=== PATIENT | male | born 1970 | race Caucasian/White ===

== ENCOUNTER 2018-07-23 14:26 | Inpatient (IN) ==
[2018-07-23] MEDS ORDERED: 0.9 % Sodium Chloride 500 ML ONE (14:52)
[2018-07-23] MEDS ORDERED: 0.9 % Sodium Chloride 1,000 ML ONE (14:53)
[2018-07-23] MEDS ORDERED: EPINEPHrine 1 MG in D5% in Water 250 ML IVC SCH (15:00)
[2018-07-23] MEDS ORDERED: 0.9 % Sodium Chloride 1,000 ML IVC ONE (15:01)
[2018-07-23] MEDS ORDERED: Isovue-370 500 ML BOTTLE IVP ONE (15:01)
[2018-07-23] MEDS ORDERED: Ondansetron 4 MG/2 ML VIAL IVP ONE (15:01)
[2018-07-23] MEDS ORDERED: *HR* Atropine Sulfate 1 MG/10 ML SYRINGE IVP ONE (15:01)
[2018-07-23 15:16] LABS: Bilirubin,Urine Negative (Negative); Blood,Urine Large (Negative); Clarity,Urine Cloudy (Clear); Color,Urine Yellow (Yellow); Glucose,Urine (UA) Normal (Normal); Ketones,Urine Negative (Negative); Leukocyte Esterase,Urine Negative (Negative); Nitrite,Urine Negative (Negative); Protein,Urine 30 mg/dL (Neg-Trace); Specific Gravity,Urine 1.013 (1.010-1.025); Urobilinogen,Urine Normal (Normal)
[2018-07-23 15:19] LABS: Bacteria,Urine None Seen per hpf (None-Few); RBC,Urine 0-3 per hpf (0-3); Squamous Epithelial Cell,Urine Many per lpf (None-Few)
[2018-07-23 15:19] LABS: Basophils % 0.4 %; Eosinophils % 0.1 %; Hematocrit 33.8 % (37.5-50.1); Hemoglobin 11.3 g/dL (12.9-16.9); Immature Granulocytes % 0.6 % (0-4); Lymphocytes # 2.6 K/mcL (0.6-4.6); Lymphocytes % 24.1 %; Mean Corpuscular HGB Conc 33.4 g/dL (31.6-35.5); Mean Corpuscular Hemoglobin 31.7 pg (28.0-33.3); Mean Corpuscular Volume 94.7 fL (83.0-100.0); Monocytes % 9.6 %; Nucleated Red Blood Cells 0.3 /100 WBC (0); Platelet Count 175 K/mcL (140-400); Red Blood Count 3.57 M/mcL (4.19-5.50); Red Cell Distribution Width 17.1 % (11.5-14.5); Segmented Neutrophils % 65.2 %
[2018-07-23 15:28] LABS: Sperm,Urine Present
[2018-07-23 15:29] LABS: Hyaline Casts,Urine Few per lpf (None-Few)
[2018-07-23 15:30] LABS: BUN/Creatinine Ratio 16 (6-26); Bilirubin,Direct 0.2 mg/dL (0.0-0.2); Bilirubin,Total 1.2 mg/dL (0.3-1.0); Blood Urea Nitrogen 21 mg/dL (6-20); Calcium 8.7 mg/dL (8.6-10.3); Carbon Dioxide 29 mEq/L (23-29); Chloride 100 mEq/L (98-107); Glucose 344 mg/dL (70-105); Osmolality,Calculated 297 (280-300); Potassium 3.9 mEq/L (3.5-5.1); Sodium 135 mEq/L (136-145); eGFR For Non-African Americans 57 (> 60)
[2018-07-23 15:31] LABS: Acetaminophen < 10 mcg/mL (10-20); Alanine Aminotransferase 22 Units/L (7-52); Albumin 4.2 g/dL (3.5-5.7); Alkaline Phosphatase 71 Units/L (34-104); Aspartate Amino Transferase 20 Units/L (13-39); Creatine Kinase 21 Units/L (30-223); Ethanol < 10 mg/dL (Less than 10); Globulin 2.1 g/dL (2.4-3.5); Salicylate < 2.5 mg/dL (15.0-30.0); Total Protein 6.3 g/dL (6.4-8.9); Troponin I < 0.03 ng/mL (< 0.04)
[2018-07-23 15:33] LABS: ABG Base Excess -3 mEq/L (-2 to 3); ABG HCO3 24 mEq/L (21-27); ABG Oxygen Saturation 92 % (95-98); ABG PCO2 52 mmHg (35-45); ABG PH 7.28 pH Units (7.32-7.45); ABG PO2 73 mmHg (85-104); ABG TCO2 26 mEq/L (20-26)
--- NOTE | 2018-07-23 15:46 | Emergency Department Note ---
Disposition Clinical Impression: Cardiac arrest Overdose Qualifiers: Encounter type: initial encounter Injury intent: intentional self-harm Qualified Code(s): T50.902A - Poisoning by unspecified drugs, medicaments and biological substances, intentional self-harm, initial encounter Disposition: Admitted As Inpatient Condition: Critical Referrals: Ute Conway, PAPER CARRIER [Primary Care Provider] - Time of Disposition: 15:47 General Adult HPI - General Stated complaint: overdose Time Seen by Provider: 07/23/18 15:00 - Related Data Home Medications Medication Instructions Recorded Confirmed clonazePAM [Klonopin] 1 mg PO TID 03/11/15 06/19/18 HydrOXYzine Pamoate [Vistaril] 25 mg PO TID PRN 05/10/16 06/19/18 Buspirone HCl [Buspar] 1 tab PO TID 06/19/18 06/19/18 DiphenhydraMINE [Benadryl] 2 cap PO Q8H 06/19/18 06/19/18 Enalapril Maleate [Vasotec] 1 tab PO DAILY 06/19/18 06/19/18 Gabapentin [Neurontin] 1 cap PO BID 06/19/18 06/19/18 Levothyroxine Sodium [Levoxyl] 1 tab PO DAILY 06/19/18 06/19/18 Paroxetine [Paxil] 1 tab PO DAILY 06/19/18 06/19/18 Temazepam [Restoril] 1 cap PO HS PRN 06/19/18 06/19/18 predniSONE [PredniSONE] 1 tab PO DAILY 06/19/18 06/19/18 Allergies Allergy/AdvReac Type Severity Reaction Status Date / Time No Known Allergies Allergy Verified 03/10/15 17:19 Past Medical History - Past Medical History Medical history: Reports: hyperlipidemia, hypertension, thyroid disease, TIA, other Surgical history: Reports: cholecystectomy, other Psychiatric history: Reports: anxiety, depression - Social History Smoking Status: Never smoker Smokeless Tobacco Status: No Alcohol use: Reports: none Drug use: Reports: none Medical Decision Making - Lab Data Result diagrams: 07/23/18 14:29 07/23/18 14:29 Lab Results 07/23/18 07/23/18 07/23/18 Range/Units 14:29 14:29 14:29 WBC 10.7 (4.3-11.1) K/mcL RBC 3.57 L (4.19-5.50) M/mcL Hgb 11.3 L (12.9-16.9) g/dL Hct 33.8 L (37.5-50.1) % MCV 94.7 (83.0-100.0) fL MCH 31.7 (28.0-33.3) pg MCHC 33.4 (31.6-35.5) g/dL RDW 17.1 H (11.5-14.5) % Plt Count 175 (140-400) K/mcL MPV 11.0 (9.4-12.4) fL Immature Gran % 0.6 (0-4) % Seg Neutrophils % 65.2 % Lymphocytes % 24.1 % Monocytes % 9.6 % Eosinophils % 0.1 % Basophils % 0.4 % Neutrophils # 7.0 (1.6-8.9) K/mcL Lymphocytes # 2.6 (0.6-4.6) K/mcL Monocytes # 1.0 (0.0-1.3) K/mcL Eosinophils # 0.0 (0.0-0.6) K/mcL Basophils # 0.0 (0.0-0.2) K/mcL Nucleated RBCs/100 WBC 0.3 H (0) /100 WBC ABG pH (7.32-7.45) pH Units ABG pCO2 (35-45) mmHg ABG pO2 (85-104) mmHg ABG HCO3 (21-27) mEq/L ABG Total CO2 (20-26) mEq/L ABG O2 Saturation (95-98) % ABG Base Excess (-2 to 3) mEq/L O2 Delivery Device Inspired O2 (1-15=lpm [id number]=%) Sodium 135 L (136-145) mEq/L Potassium 3.9 (3.5-5.1) mEq/L Chloride 100 (98-107) mEq/L Carbon Dioxide 29 (23-29) mEq/L BUN 21 H (6-20) mg/dL Creatinine 1.34 H (0.70-1.30) mg/dL Est GFR ( Amer) > 60 (> 60) Est GFR (Non-Af Amer) 57 L (> 60) BUN/Creatinine Ratio 16 (6-26) Glucose 344 H (70-105) mg/dL Calculated Osmolality 297 (280-300) Lactic Acid 1.6 (0.5-2.2) mmol/L Calcium 8.7 (8.6-10.3) mg/dL Total Bilirubin 1.2 H (0.3-1.0) mg/dL Direct Bilirubin 0.2 (0.0-0.2) mg/dL Indirect Bilirubin 1.0 (0.0-1.2) mg/dL AST 20 (13-39) Units/L ALT 22 (7-52) Units/L Alkaline Phosphatase 71 (34-104) Units/L Creatine Kinase 21 L (30-223) Units/L Troponin I < 0.03 (< 0.04) ng/mL Serum Total Protein 6.3 L (6.4-8.9) g/dL Albumin 4.2 (3.5-5.7) g/dL Globulin 2.1 L (2.4-3.5) g/dL Albumin/Globulin Ratio 2.0 (1.1-2.2) Urine Color (Yellow) Urine Clarity (Clear) Urine pH (5.0-8.0) pH Units Ur Specific [place] (1.010-1.025) Urine Protein (Neg-Trace) mg/dL Urine Glucose (UA) (Normal) mg/dL Urine Ketones (Negative) mg/dL Urine Blood (Negative) Urine Nitrite (Negative) Urine Bilirubin (Negative) Urine Urobilinogen (Normal) mg/dL Ur Leukocyte Esterase (Negative) Urine Microscopic RBC (0-3) per hpf Urine Microscopic WBC (0-3) per hpf Ur Squamous Epith Cells (None-Few) per lpf Urine Bacteria (None-Few) per hpf Hyaline Casts (None-Few) per lpf Urine Sperm Salicylates < 2.5 L (15.0-30.0) mg/dL Acetaminophen < 10 L (10-20) mcg/mL Ur Drug Screen Interp Ethyl Alcohol < 10 (Less than 10) mg/dL 07/23/18 07/23/18 07/23/18 Range/Units 15:05 15:05 15:29 WBC (4.3-11.1) K/mcL RBC (4.19-5.50) M/mcL Hgb (12.9-16.9) g/dL Hct (37.5-50.1) % MCV (83.0-100.0) fL MCH (28.0-33.3) pg MCHC (31.6-35.5) g/dL RDW (11.5-14.5) % Plt Count (140-400) K/mcL MPV (9.4-12.4) fL Immature Gran % (0-4) % Seg Neutrophils % % Lymphocytes % % Monocytes % % Eosinophils % % Basophils % % Neutrophils # (1.6-8.9) K/mcL Lymphocytes # (0.6-4.6) K/mcL Monocytes # (0.0-1.3) K/mcL Eosinophils # (0.0-0.6) K/mcL Basophils # (0.0-0.2) K/mcL Nucleated RBCs/100 WBC (0) /100 WBC ABG pH 7.28 L (7.32-7.45) pH Units ABG pCO2 52 H (35-45) mmHg ABG pO2 73 L (85-104) mmHg ABG HCO3 24 (21-27) mEq/L ABG Total CO2 26 (20-26) mEq/L ABG O2 Saturation 92 L (95-98) % ABG Base Excess -3 L (-2 to 3) mEq/L O2 Delivery Device Bagging Inspired O2 100.0 (1-15=lpm [id number]=%) Sodium (136-145) mEq/L Potassium (3.5-5.1) mEq/L Chloride (98-107) mEq/L Carbon Dioxide (23-29) mEq/L BUN (6-20) mg/dL Creatinine (0.70-1.30) mg/dL Est GFR ( Amer) (> 60) Est GFR (Non-Af Amer) (> 60) BUN/Creatinine Ratio (6-26) Glucose (70-105) mg/dL Calculated Osmolality (280-300) Lactic Acid (0.5-2.2) mmol/L Calcium (8.6-10.3) mg/dL Total Bilirubin (0.3-1.0) mg/dL Direct Bilirubin (0.0-0.2) mg/dL Indirect Bilirubin (0.0-1.2) mg/dL AST (13-39) Units/L ALT (7-52) Units/L Alkaline Phosphatase (34-104) Units/L Creatine Kinase (30-223) Units/L Troponin I (< 0.04) ng/mL Serum Total Protein (6.4-8.9) g/dL Albumin (3.5-5.7) g/dL Globulin (2.4-3.5) g/dL Albumin/Globulin Ratio (1.1-2.2) Urine Color Yellow (Yellow) Urine Clarity Cloudy A (Clear) Urine pH 6.0 (5.0-8.0) pH Units Ur Specific [place] 1.013 (1.010-1.025) Urine Protein 30 H (Neg-Trace) mg/dL Urine Glucose (UA) Normal (Normal) mg/dL Urine Ketones Negative (Negative) mg/dL Urine Blood Large H (Negative) Urine Nitrite Negative (Negative) Urine Bilirubin Negative (Negative) Urine Urobilinogen Normal (Normal) mg/dL Ur Leukocyte Esterase Negative (Negative) Urine Microscopic RBC 0-3 (0-3) per hpf Urine Microscopic WBC 5-15 H (0-3) per hpf Ur Squamous Epith Cells Many H (None-Few) per lpf Urine Bacteria None Seen (None-Few) per hpf Hyaline Casts Few (None-Few) per lpf Urine Sperm Present Salicylates (15.0-30.0) mg/dL Acetaminophen (10-20) mcg/mL Ur Drug Screen Interp See Below Ethyl Alcohol (Less than 10) mg/dL Attestation Statement - Attestation Attestation: I examined this patient and my medical decision-making was reviewed with the Resident Physician. I agree with the documented findings, disposition and treatment plan as described except to the extent set forth below. I reviewed the residents documentation and agree with the residents assessment and plan of care. I have personally had face to face time with the patient. (Brief History, Brief Exam, and MDM) I personally supervised and was present for the velazquez/critical portions of the following procedures completed by the resident: (add procedures performed here). intubation, arterial line 48 year old male who presnts ot the ED unresponsive with snoring respirations and no gag reflex and a GCS of 6. Mariya has an intentional suicidal oversode today with his neew prescribed klonopoin of 90 pills and flexeril. Mariya was immeaidately intubated and was otherwsie a difficulty intubations seoncdayr to body habitus and anterior vocal cords with large neck. 1 attempt with DL, 3 attempts with VL. He was initially bradycardiac and after RSI became more bradycardiac and required atropine therapy for readjuments and he became increasingly more hypoxic and after tube placement was still in the upper 80s and there is concnerd for a great deal of aspiration on this patient and he started to vomit profusely after the atropoine was given. Atropine was not successful and he initially showed PEA, and we starte chest compressions continously and mutliple doses of epi and one dose of bicarb which then resulted with ROSC and we placed him on an epi drip in addition to continue monitoring of his hypoxia and readjument of the ET tube to be fruther down as it appears to be at the thoarcic inlet. Mariya is now on post sedation protocol orders and modesta be admit to the ICu. Discussed case with joie montenegro who recommended deconmination and NG tube is oterhwise in good placement.
[2018-07-23 15:48] LABS: Amphetamine Screen,Urine Negative ng/mL (Cutoff=1000); Barbiturate Screen,Urine Negative ng/mL (Cutoff=200); Benzodiazepines Screen,Urine Positive ng/mL (Cutoff=200); Cannabinoid Screen,Urine Negative ng/mL (Cutoff = 50); Cocaine Screen,Urine Negative ng/mL (Cutoff= 300); Opiate Screen,Urine Negative ng/mL (Cutoff=300); Phencyclidine Screen,Urine Negative ng/mL (Cutoff=25)
[2018-07-23] MEDS ORDERED: Clindamycin 900 MG/50 ML 900 MG/50 ML IV.SOLN IVPB ONE (16:39)
[2018-07-23] MEDS ORDERED: Naloxone 0.4 MG/ML INJ IVP PRN (17:03)
--- NOTE | 2018-07-23 17:48 | Internal Med History&Physical ---
Date of Encounter: 07/23/18 Time of Encounter: 17:00 Internal Medicine - H&P: HPI Chief complaint: medication overdose s/p cardiac arrest and respiratory failure History of present illness: Mr. Beltran is a 48 year old male with pmh hypertension, hyperlipidemia, thyroid disease, anxiety on klonazepam presenting s/p medication overdose today complicated by cardiac and respiratory failure. History obtained from ER and family as patient is intubated. Patient admitted to taking 90 tablets of klonazepam and some flexeril which he had reportedly recently filled. He called his to tell her what he had done and she found him lethargic and barely responsive and EMS was called. On arrival to the Er, he was reportedly already being bagged, he was immediately intubated and successfully intubated after 3 attempts. GCS was 5 on arrival and he had no gag reflex. He began to become bradycardic and was noted to be hypoxic. He got atropine but still went into PEA. He got about 4 rounds of CPR and 4 doses of epinephrine and one dose of bicarb after which he regained ROSC. He was subsequently started on an epinephine drip which was discontinued afer his BP went up into the 190s. Poison control was contacted and he got activated charcoal. He was also noted to have a lot of vomiting after his dose of atropine. He is currently saturating 100% on 100% FIO2 . BP is 152/87. ABG was done and showed 7.28, PCO2 52, PO2 73. He is on IV fluids and is being admitted for [facility] er management Past Med Surg Social Fam HX - Past Medical History Medical history: hyperlipidemia, hypertension, thyroid disease, TIA, other Additional medical history: Cervical stenosis of spinal canal. cervical radiculopathy. HLD. thyroid disease. depression Psychiatric history: anxiety, depression - Past Surgical History Surgical History: cholecystectomy, other Additional surgical history: femur fracture repair right. ACDF C6-7 05/10/16. RIGHT SHOULDER ROTATOR CUFF REPAIR - Social History Smoking Status: Never smoker Smokeless Tobacco Status: No Alcohol use: none Drug use: none - Family History Father Living Status: Hx Family Cardiac Disorders: Yes (CABG at age 70) Mother Living Status: Still Living Hx Family Cardiac Disorders: Yes (CABG at age 70) Hx Family Endocrine Disorder: Yes (DM) Internal Medicine - H&P: Meds clonazePAM [Klonopin] 1 mg PO TID 03/11/15 [History] HydrOXYzine Pamoate [Vistaril] 25 mg PO TID PRN 05/10/16 [History] Buspirone HCl [Buspar] 1 tab PO TID 06/19/18 [History] DiphenhydraMINE [Benadryl] 2 cap PO Q8H 06/19/18 [History] Enalapril Maleate [Vasotec] 1 tab PO DAILY 06/19/18 [History] Gabapentin [Neurontin] 1 cap PO BID 06/19/18 [History] Levothyroxine Sodium [Levoxyl] 1 tab PO DAILY 06/19/18 [History] Paroxetine [Paxil] 1 tab PO DAILY 06/19/18 [History] Temazepam [Restoril] 1 cap PO HS PRN 06/19/18 [History] predniSONE [PredniSONE] 1 tab PO DAILY 06/19/18 [History] Allergy/AdvReac Type Severity Reaction Status Date / Time No Known Allergies Allergy Verified 03/10/15 17:19 ROS unobtainable: due to endotracheal tube, due to mental status All Systems PM: A 10-system review of systems was performed and is negative for pertinent findings except as documented above in the HPI. - Constitutional Vitals: Pulse Resp BP Pulse Ox 71 16 152/87 99 07/23/18 16:46 07/23/18 16:46 07/23/18 16:46 07/23/18 16:46 Exam: Intubated GCS 3T - Head Head exam: Present: atraumatic, normocephalic - Eye Eye exam: Present: PERRL, conjuntiva pink, sclera anicteric Pupils: Present: PERRL - Neck Neck exam general surgery: Present: supple, trachea midline. Absent: lymphadenopathy - Respiratory Respiratory exam: Present: CTAB. Absent: accessory muscle use, rales, rhonchi, wheezes - Cardiovascular Cardiovascular exam: Present: RRR, +S1, +S2. Absent: diastolic murmur, gallop, rubs, systolic murmur - GI/Abdominal GI/Abdominal exam: Present: normal bowel sounds, soft, no peritoneal signs. Absent: distended, tenderness - Extremities Exam Extremities exam: Present: warm, radial pulses palpable and symmetrical. Absent: calf tenderness, cyanotic, pedal edema - Neurological Exam Neurological exam: Present: CN II-XII intact, oriented X3, no focal deficits. Absent: pronater drift, facial droop, speech deficit - Skin Skin exam: Present: dry, intact Internal Med - H&P Results - Labs CBC & Chem 7: 07/23/18 14:29 07/23/18 14:29 Labs: Short CBC 07/23/18 Range/Units 14:29 WBC 10.7 (4.3-11.1) K/mcL Hgb 11.3 L (12.9-16.9) g/dL Hct 33.8 L (37.5-50.1) % Plt Count 175 (140-400) K/mcL Neutrophils # 7.0 (1.6-8.9) K/mcL BMP 07/23/18 14:29 Sodium 135 L Potassium 3.9 Chloride 100 Carbon Dioxide 29 BUN 21 H Creatinine 1.34 H Glucose 344 H Calcium 8.7 Cardiac Enzymes 07/23/18 Range/Units 14:29 Troponin I < 0.03 (< 0.04) ng/mL Liver Function 07/23/18 Range/Units 14:29 Total Bilirubin 1.2 H (0.3-1.0) mg/dL Direct Bilirubin 0.2 (0.0-0.2) mg/dL AST 20 (13-39) Units/L ALT 22 (7-52) Units/L Alkaline Phosphatase 71 (34-104) Units/L Albumin 4.2 (3.5-5.7) g/dL Urine 07/23/18 Range/Units 15:05 Urine Color Yellow (Yellow) Urine Clarity Cloudy A (Clear) Urine pH 6.0 (5.0-8.0) pH Units Ur Specific [place] 1.013 (1.010-1.025) Urine Protein 30 H (Neg-Trace) mg/dL Urine Glucose (UA) Normal (Normal) mg/dL - ABG Interpretation ABG results: 07/23/18 15:29 ABG pH 7.28 L ABG pCO2 52 H ABG pO2 73 L ABG HCO3 24 ABG Total CO2 26 ABG O2 Saturation 92 L ABG Base Excess -3 L - Impressions ITS Impressions Chest X-Ray 07/23/18 00:00 IMPRESSION: Endotracheal tube tip remains mild positioned, at the C7-T1 level. That should be advanced approximately 6 additional cm for more optimal placement. D/ / Sp Medina MD / Sp Medina MD Interpreting Provider: Sp Medina MD Abdomen/Pelvis CT 07/23/18 15:01 IMPRESSION: 1. No acute intra-abdominal or pelvic abnormality. 2. Fluid-filled loops of small bowel may relate to ileus or gastroenteritis. 3. Bilateral lower lobe pneumonia. D/ / 07/23/2018 16:33:46 [facility] Provider: Mateo Sanon MD Cervical Spine CT 07/23/18 15:01 IMPRESSION: Head CT: No acute intracranial abnormality. Cervical spine CT: Limited by motion artifact and streak artifact. Given that limitation, no acute fracture or traumatic abnormalities seen. Again noted is a superiorly placed endotracheal tube, previously discussed on the chest radiograph. D/ / Sp Medina MD / Sp Medina MD Interpreting Provider: Sp Medina MD Chest CTA 07/23/18 15:01 IMPRESSION: 1. No evidence of acute pulmonary embolism. 2. Endotracheal tube is positioned at the thoracic inlet. 3. Dense bibasilar atelectasis. D/ / 07/23/2018 16:33:10 Alexander Rosas MD / [facility] Interpreting Provider: Alexander Rosas MD Chest X-Ray 07/23/18 15:01 IMPRESSION: The patient has been intubated. The tip of the endotracheal tube is around the C7-T1 level near the thoracic inlet. This should be advanced. Low lung volumes. D/ / 07/23/2018 15:51:31 Caity Sue MD / [facility] Interpreting Provider: Caity Sue MD KUB X-Ray 07/23/18 15:01 IMPRESSION: Proximal port and tip of the NG tube is in the fundus of the stomach. There is mild dilatation of the stomach and proximal small bowel. D/ / 07/23/2018 15:49:52 Caity Sue MD / [facility] Interpreting Provider: Caity Sue MD Head CT 07/23/18 15:02 IMPRESSION: Head CT: No acute intracranial abnormality. Cervical spine CT: Limited by motion artifact and streak artifact. Given that limitation, no acute fracture or traumatic abnormalities seen. Again noted is a superiorly placed endotracheal tube, previously discussed on the chest radiograph. D/ / Sp Medina MD / Sp Medina MD Interpreting Provider: Sp Medina MD Chest X-Ray 07/23/18 16:53 IMPRESSION: Tip of the enteric tube approximately 3.4 cm above the yesenia. D/ / Roger Bonilla MD / Roger Bonilla MD Interpreting Provider: Roger Bonilla MD - Assessment and Plan (1) Cardiac arrest Current Visit: Yes Status: Acute Assessment and plan: Pt comes in with hypoxic respiratory failure and PEA s/p ROSC after 4 rounds of epinephrine and 1 dose of bicarb Patient not a candidate for hypothermia protocol 2/2 to drug overdose and GCS <5 pre arrest Continue current management with ventilation and supportive care with IV fluids Obtain 2D echo. BP is currently stable without pressors (2) Acute respiratory failure with hypoxia Current Visit: Yes Status: Acute Assessment and plan: Likely secondary benzodiazepine overdose. Intubated. Saturating 100% on 100% FiO2. wean off oxygen as tolerated ABG in am. ABg showed mild respiratory acidosis with PH 7.28, PcO2 52, PO2 73 (3) Benzodiazepine (tranquilizer) overdose Current Visit: Yes Status: Acute Assessment and plan: See #1. Posion control contacted. Received activated charcoal in the ER Supportive management. Renal contacted and patient is not a candidate for dialysis Continue IV fluids Qualifiers: Qualified Code(s): T42.4X1A - Poisoning by benzodiazepines, accidental (unintentional), initial encounter (4) Aspiration pneumonia Current Visit: Yes Status: Acute Assessment and plan: Pt had a lot of vomiting in the ER and likely aspirated. CT chest showed bilateral pneumonia Will cover empirically with unasyn Qualifiers: Qualified Code(s): J69.0 - Pneumonitis due to inhalation of food and vomit (5) Acute kidney injury Current Visit: Yes Status: Acute Assessment and plan: IV fluids. Monitor creatinine (6) DVT prophylaxis Current Visit: Yes Status: Acute Assessment and plan: Heparin sc - Time Spent With Patient Total time spent is greater than 50% in coordination of care (as documented) at patient's floor/unit and/or counseling patient:
[2018-07-23] MEDS ORDERED: Ampicillin/Sulbactam 3,000 MG in 0.9 % Sodium Chloride Mini Bag 100 ML IVPB SCH (18:00)
--- NOTE | 2018-07-23 18:13 | Emergency Department Note ---
Disposition Clinical Impression: Cardiac arrest Overdose Qualifiers: Encounter type: initial encounter Injury intent: intentional self-harm Qualified Code(s): T50.902A - Poisoning by unspecified drugs, medicaments and biological substances, intentional self-harm, initial encounter Disposition: Admitted As Inpatient Condition: Critical Time of Disposition: 18:48 General Adult HPI - General Chief complaint: ED Overdose Stated complaint: overdose Time Seen by Provider: 07/23/18 15:00 Source: EMS Mode of arrival: EMS Nursing Notes Reviewed: Yes Vital Signs Reviewed: Yes - History of Present Illness HPI Narrative: 48-year-old male brought to the emergency department via EMS for intentional overdose. According to EMS patient took 90 tablets of his Klonopin and an unknown amount of Flexeril and an intentional overdose at home. He called his stating that he was sorry and she rushed over and found him unresponsive. EMS bagged patient along the Route. 4 mg of Narcan was given with no response. When patient arrived he is altered with a GCS of 3 upon arrival. No gag reflex. Decision was made to intubate the patient at that time. During intubation patient aspirated bright green emesis that was suctioned. Small pieces of pills were seen in the emesis. Patient bradycardia down and received 2 doses of atropine. Minimal response. Pulse was lost at this time. Multiple rounds of ACLS was completed with epinephrine given and one amp of bicarbonate. Patient had return of spontaneous circulation with good cardiac motion on ultrasound. At that time an epinephrine drip was started. This was run for less than 10 minutes. After return of spontaneous circulation patient remained unresponsive and intubated. Workup including laboratory analysis and CT of the head, cervical spine, chest, abdomen and pelvis was completed. Poison control was contacted and they recommended 100 g of activated charcoal, EKG and basic laboratory analysis that was already ordered. OG was placed in the 100 g of charcoal was given. Initial chest x-ray concerning for endotracheal tube being high therefore it was eventually advanced 4 cm. A repeat chest x-ray shows appropriate placement of endotracheal tube. OG placement appropriate on KUB x- ray. CT of the head and cervical spine did not show any acute abnormality. CT of the chest, abdomen and pelvis showed bilateral lower lobe pneumonia. This is most likely due to aspiration. Patient's laboratory analysis is significant for mild acute kidney injury along with positive benzodiazepines in the urine. Patient stabilized in the emergency department and will be admitted to the ICU for further treatment and evaluation. I spoke with the hospitalist communication studies professor Dr. Hernadez who agreed to accept the patient at this time. Please refer to further notes for procedures including arterial line. Pain Scale: 0 - Related Data Home Medications Medication Instructions Recorded Confirmed clonazePAM [Klonopin] 1 mg PO TID 03/11/15 06/19/18 HydrOXYzine Pamoate [Vistaril] 25 mg PO TID PRN 05/10/16 06/19/18 Buspirone HCl [Buspar] 1 tab PO TID 06/19/18 06/19/18 DiphenhydraMINE [Benadryl] 2 cap PO Q8H 06/19/18 06/19/18 Enalapril Maleate [Vasotec] 1 tab PO DAILY 06/19/18 06/19/18 Gabapentin [Neurontin] 1 cap PO BID 06/19/18 06/19/18 Levothyroxine Sodium [Levoxyl] 1 tab PO DAILY 06/19/18 06/19/18 Paroxetine [Paxil] 1 tab PO DAILY 06/19/18 06/19/18 Temazepam [Restoril] 1 cap PO HS PRN 06/19/18 06/19/18 predniSONE [PredniSONE] 1 tab PO DAILY 06/19/18 06/19/18 Allergies Allergy/AdvReac Type Severity Reaction Status Date / Time No Known Allergies Allergy Verified 03/10/15 17:19 Limitations: ROS unobtainable due to patients medical condition Past Medical History - Past Medical History Source: old records reviewed Medical history: Reports: hyperlipidemia, hypertension, thyroid disease, TIA, other Surgical history: Reports: cholecystectomy, other Psychiatric history: Reports: anxiety, depression - Social History Smoking Status: Unknown if ever smoked Smokeless Tobacco Status: No Alcohol use: Reports: none Drug use: Reports: none Physical Exam - General Limitations: altered mental status General appearance: other (GCS 3) - Eye Eye exam: Absent: scleral icterus - ENT ENT exam: mucous membranes moist - Chest Chest inspection: Present: symmetric chest wall rise - Respiratory Respiratory exam: Present: other (snoring) - Cardiovascular Cardiovascular exam: Present: regular rate, normal rhythm, normal heart sounds - Abdominal Exam Abdominal exam: Present: distention - Extremities Exam Extremities exam: Present: normal inspection - Skin Skin exam: Present: diaphoresis Course Vital Signs Temperature 98.4 F 07/23/18 14:30 Pulse Rate 65 07/23/18 14:30 Respiratory Rate 16 07/23/18 14:30 Blood Pressure 129/94 07/23/18 14:30 O2 Sat by Pulse Oximetry 99 07/23/18 14:30 Temperature 98.4 F 07/23/18 18:12 Pulse Rate 67 07/23/18 18:12 Respiratory Rate 16 07/23/18 18:12 Blood Pressure 125/69 07/23/18 18:12 O2 Sat by Pulse Oximetry 100 07/23/18 18:12 Oxygen Delivery Oxygen Delivery Ventilator Procedures - Intubation sedative: Etomidate Mg Given: 20 paralytic: Rocuronium Mg Given: 100 Laryngoscope: fiber optic video scope Assist Device Used: fiber optic device ET Tube Size: 7 ET Tube Uncuffed: No Tube Secured Location: teeth Tube Placement Confirmation: visualized tube passing through cords, equal breath sounds bilaterally, no breath sounds over epigastrium, confirmation by capnometry Intubation Complications: difficult intubation Medical Decision Making - Lab Data Result diagrams: 07/23/18 14:29 07/23/18 14:29 Lab Results 07/23/18 07/23/18 07/23/18 Range/Units 14:29 14:29 14:29 WBC 10.7 (4.3-11.1) K/mcL RBC 3.57 L (4.19-5.50) M/mcL Hgb 11.3 L (12.9-16.9) g/dL Hct 33.8 L (37.5-50.1) % MCV 94.7 (83.0-100.0) fL MCH 31.7 (28.0-33.3) pg MCHC 33.4 (31.6-35.5) g/dL RDW 17.1 H (11.5-14.5) % Plt Count 175 (140-400) K/mcL MPV 11.0 (9.4-12.4) fL Immature Gran % 0.6 (0-4) % Seg Neutrophils % 65.2 % Lymphocytes % 24.1 % Monocytes % 9.6 % Eosinophils % 0.1 % Basophils % 0.4 % Neutrophils # 7.0 (1.6-8.9) K/mcL Lymphocytes # 2.6 (0.6-4.6) K/mcL Monocytes # 1.0 (0.0-1.3) K/mcL Eosinophils # 0.0 (0.0-0.6) K/mcL Basophils # 0.0 (0.0-0.2) K/mcL Nucleated RBCs/100 WBC 0.3 H (0) /100 WBC ABG pH (7.32-7.45) pH Units ABG pCO2 (35-45) mmHg ABG pO2 (85-104) mmHg ABG HCO3 (21-27) mEq/L ABG Total CO2 (20-26) mEq/L ABG O2 Saturation (95-98) % ABG Base Excess (-2 to 3) mEq/L O2 Delivery Device Inspired O2 (1-15=lpm [id number]=%) Sodium 135 L (136-145) mEq/L Potassium 3.9 (3.5-5.1) mEq/L Chloride 100 (98-107) mEq/L Carbon Dioxide 29 (23-29) mEq/L BUN 21 H (6-20) mg/dL Creatinine 1.34 H (0.70-1.30) mg/dL Est GFR ( Amer) > 60 (> 60) Est GFR (Non-Af Amer) 57 L (> 60) BUN/Creatinine Ratio 16 (6-26) Glucose 344 H (70-105) mg/dL Calculated Osmolality 297 (280-300) Lactic Acid 1.6 (0.5-2.2) mmol/L Calcium 8.7 (8.6-10.3) mg/dL Total Bilirubin 1.2 H (0.3-1.0) mg/dL Direct Bilirubin 0.2 (0.0-0.2) mg/dL Indirect Bilirubin 1.0 (0.0-1.2) mg/dL AST 20 (13-39) Units/L ALT 22 (7-52) Units/L Alkaline Phosphatase 71 (34-104) Units/L Creatine Kinase 21 L (30-223) Units/L Troponin I < 0.03 (< 0.04) ng/mL Serum Total Protein 6.3 L (6.4-8.9) g/dL Albumin 4.2 (3.5-5.7) g/dL Globulin 2.1 L (2.4-3.5) g/dL Albumin/Globulin Ratio 2.0 (1.1-2.2) Urine Color (Yellow) Urine Clarity (Clear) Urine pH (5.0-8.0) pH Units Ur Specific [place] (1.010-1.025) Urine Protein (Neg-Trace) mg/dL Urine Glucose (UA) (Normal) mg/dL Urine Ketones (Negative) mg/dL Urine Blood (Negative) Urine Nitrite (Negative) Urine Bilirubin (Negative) Urine Urobilinogen (Normal) mg/dL Ur Leukocyte Esterase (Negative) Urine Microscopic RBC (0-3) per hpf Urine Microscopic WBC (0-3) per hpf Ur Squamous Epith Cells (None-Few) per lpf Urine Bacteria (None-Few) per hpf Hyaline Casts (None-Few) per lpf Urine Sperm Salicylates < 2.5 L (15.0-30.0) mg/dL Urine Opiates Screen (Nyqzqi=111) ng/mL Acetaminophen < 10 L (10-20) mcg/mL Ur Barbiturates Screen (Ruirwa=369) ng/mL Ur Phencyclidine Scrn (Cutoff=25) ng/mL Ur Amphetamines Screen (Ysqrfw=4658) ng/mL U Benzodiazepines Scrn (Nyqyze=466) ng/mL Urine Cocaine Screen (Cutoff= 300) ng/mL U Marijuana (THC) Screen (Cutoff = 50) ng/mL Ur Drug Screen Interp Ethyl Alcohol < 10 (Less than 10) mg/dL 07/23/18 07/23/18 07/23/18 Range/Units 15:05 15:05 15:29 WBC (4.3-11.1) K/mcL RBC (4.19-5.50) M/mcL Hgb (12.9-16.9) g/dL Hct (37.5-50.1) % MCV (83.0-100.0) fL MCH (28.0-33.3) pg MCHC (31.6-35.5) g/dL RDW (11.5-14.5) % Plt Count (140-400) K/mcL MPV (9.4-12.4) fL Immature Gran % (0-4) % Seg Neutrophils % % Lymphocytes % % Monocytes % % Eosinophils % % Basophils % % Neutrophils # (1.6-8.9) K/mcL Lymphocytes # (0.6-4.6) K/mcL Monocytes # (0.0-1.3) K/mcL Eosinophils # (0.0-0.6) K/mcL Basophils # (0.0-0.2) K/mcL Nucleated RBCs/100 WBC (0) /100 WBC ABG pH 7.28 L (7.32-7.45) pH Units ABG pCO2 52 H (35-45) mmHg ABG pO2 73 L (85-104) mmHg ABG HCO3 24 (21-27) mEq/L ABG Total CO2 26 (20-26) mEq/L ABG O2 Saturation 92 L (95-98) % ABG Base Excess -3 L (-2 to 3) mEq/L O2 Delivery Device Bagging Inspired O2 100.0 (1-15=lpm [id number]=%) Sodium (136-145) mEq/L Potassium (3.5-5.1) mEq/L Chloride (98-107) mEq/L Carbon Dioxide (23-29) mEq/L BUN (6-20) mg/dL Creatinine (0.70-1.30) mg/dL Est GFR ( Amer) (> 60) Est GFR (Non-Af Amer) (> 60) BUN/Creatinine Ratio (6-26) Glucose (70-105) mg/dL Calculated Osmolality (280-300) Lactic Acid (0.5-2.2) mmol/L Calcium (8.6-10.3) mg/dL Total Bilirubin (0.3-1.0) mg/dL Direct Bilirubin (0.0-0.2) mg/dL Indirect Bilirubin (0.0-1.2) mg/dL AST (13-39) Units/L ALT (7-52) Units/L Alkaline Phosphatase (34-104) Units/L Creatine Kinase (30-223) Units/L Troponin I (< 0.04) ng/mL Serum Total Protein (6.4-8.9) g/dL Albumin (3.5-5.7) g/dL Globulin (2.4-3.5) g/dL Albumin/Globulin Ratio (1.1-2.2) Urine Color Yellow (Yellow) Urine Clarity Cloudy A (Clear) Urine pH 6.0 (5.0-8.0) pH Units Ur Specific [place] 1.013 (1.010-1.025) Urine Protein 30 H (Neg-Trace) mg/dL Urine Glucose (UA) Normal (Normal) mg/dL Urine Ketones Negative (Negative) mg/dL Urine Blood Large H (Negative) Urine Nitrite Negative (Negative) Urine Bilirubin Negative (Negative) Urine Urobilinogen Normal (Normal) mg/dL Ur Leukocyte Esterase Negative (Negative) Urine Microscopic RBC 0-3 (0-3) per hpf Urine Microscopic WBC 5-15 H (0-3) per hpf Ur Squamous Epith Cells Many H (None-Few) per lpf Urine Bacteria None Seen (None-Few) per hpf Hyaline Casts Few (None-Few) per lpf Urine Sperm Present Salicylates (15.0-30.0) mg/dL Urine Opiates Screen Negative (Trmhet=545) ng/mL Acetaminophen (10-20) mcg/mL Ur Barbiturates Screen Negative (Pejbcd=935) ng/mL Ur Phencyclidine Scrn Negative (Cutoff=25) ng/mL Ur Amphetamines Screen Negative (Iniclm=4015) ng/mL U Benzodiazepines Scrn Positive H (Ibzwtg=421) ng/mL Urine Cocaine Screen Negative (Cutoff= 300) ng/mL U Marijuana (THC) Screen Negative (Cutoff = 50) ng/mL Ur Drug Screen Interp See Below Ethyl Alcohol (Less than 10) mg/dL
--- NOTE | 2018-07-23 18:13 | Emergency Department Note ---
Disposition Clinical Impression: Cardiac arrest Overdose Qualifiers: Encounter type: initial encounter Injury intent: intentional self-harm Qualified Code(s): T50.902A - Poisoning by unspecified drugs, medicaments and biological substances, intentional self-harm, initial encounter Disposition: Admitted As Inpatient Condition: Critical Time of Disposition: 18:13 General Adult HPI - General Chief complaint: ED Overdose Stated complaint: overdose Time Seen by Provider: 07/23/18 15:00 Source: EMS - History of Present Illness HPI Narrative: This is just a procedure note Pain Scale: 0 - Related Data Home Medications Medication Instructions Recorded Confirmed clonazePAM [Klonopin] 1 mg PO TID 03/11/15 06/19/18 HydrOXYzine Pamoate [Vistaril] 25 mg PO TID PRN 05/10/16 06/19/18 Buspirone HCl [Buspar] 1 tab PO TID 06/19/18 06/19/18 DiphenhydraMINE [Benadryl] 2 cap PO Q8H 06/19/18 06/19/18 Enalapril Maleate [Vasotec] 1 tab PO DAILY 06/19/18 06/19/18 Gabapentin [Neurontin] 1 cap PO BID 06/19/18 06/19/18 Levothyroxine Sodium [Levoxyl] 1 tab PO DAILY 06/19/18 06/19/18 Paroxetine [Paxil] 1 tab PO DAILY 06/19/18 06/19/18 Temazepam [Restoril] 1 cap PO HS PRN 06/19/18 06/19/18 predniSONE [PredniSONE] 1 tab PO DAILY 06/19/18 06/19/18 Allergies Allergy/AdvReac Type Severity Reaction Status Date / Time No Known Allergies Allergy Verified 03/10/15 17:19 Past Medical History - Past Medical History Medical history: Reports: hyperlipidemia, hypertension, thyroid disease, TIA, other Surgical history: Reports: cholecystectomy, other Psychiatric history: Reports: anxiety, depression - Social History Smoking Status: Unknown if ever smoked Smokeless Tobacco Status: No Alcohol use: Reports: none Drug use: Reports: none Course Vital Signs Temperature 98.4 F 07/23/18 14:30 Pulse Rate 65 07/23/18 14:30 Respiratory Rate 16 07/23/18 14:30 Blood Pressure 129/94 07/23/18 14:30 O2 Sat by Pulse Oximetry 99 07/23/18 14:30 Temperature 98.4 F 07/23/18 17:56 Pulse Rate 67 07/23/18 17:56 Respiratory Rate 16 07/23/18 17:56 Blood Pressure 125/69 07/23/18 17:56 O2 Sat by Pulse Oximetry 100 07/23/18 17:56 Oxygen Delivery Oxygen Delivery Ventilator Procedures - Arterial Line Consent Obtained: verbal consent Time Out Performed: Yes Size (Gauge): 18 Technique Used: direct puncture technique Post-Procedure: line sutured into place, line taped into place, dry sterile dr ginny placed Patient Tolerated Procedure: well, no complications Complications: none Site: right, radial Medical Decision Making - MDM Narrative Medical decision making narrative: This is just arterial line procedure note - Lab Data Result diagrams: 07/23/18 14:29 07/23/18 14:29 Lab Results 07/23/18 07/23/18 07/23/18 Range/Units 14:29 14:29 14:29 WBC 10.7 (4.3-11.1) K/mcL RBC 3.57 L (4.19-5.50) M/mcL Hgb 11.3 L (12.9-16.9) g/dL Hct 33.8 L (37.5-50.1) % MCV 94.7 (83.0-100.0) fL MCH 31.7 (28.0-33.3) pg MCHC 33.4 (31.6-35.5) g/dL RDW 17.1 H (11.5-14.5) % Plt Count 175 (140-400) K/mcL MPV 11.0 (9.4-12.4) fL Immature Gran % 0.6 (0-4) % Seg Neutrophils % 65.2 % Lymphocytes % 24.1 % Monocytes % 9.6 % Eosinophils % 0.1 % Basophils % 0.4 % Neutrophils # 7.0 (1.6-8.9) K/mcL Lymphocytes # 2.6 (0.6-4.6) K/mcL Monocytes # 1.0 (0.0-1.3) K/mcL Eosinophils # 0.0 (0.0-0.6) K/mcL Basophils # 0.0 (0.0-0.2) K/mcL Nucleated RBCs/100 WBC 0.3 H (0) /100 WBC ABG pH (7.32-7.45) pH Units ABG pCO2 (35-45) mmHg ABG pO2 (85-104) mmHg ABG HCO3 (21-27) mEq/L ABG Total CO2 (20-26) mEq/L ABG O2 Saturation (95-98) % ABG Base Excess (-2 to 3) mEq/L O2 Delivery Device Inspired O2 (1-15=lpm [id number]=%) Sodium 135 L (136-145) mEq/L Potassium 3.9 (3.5-5.1) mEq/L Chloride 100 (98-107) mEq/L Carbon Dioxide 29 (23-29) mEq/L BUN 21 H (6-20) mg/dL Creatinine 1.34 H (0.70-1.30) mg/dL Est GFR ( Amer) > 60 (> 60) Est GFR (Non-Af Amer) 57 L (> 60) BUN/Creatinine Ratio 16 (6-26) Glucose 344 H (70-105) mg/dL Calculated Osmolality 297 (280-300) Lactic Acid 1.6 (0.5-2.2) mmol/L Calcium 8.7 (8.6-10.3) mg/dL Total Bilirubin 1.2 H (0.3-1.0) mg/dL Direct Bilirubin 0.2 (0.0-0.2) mg/dL Indirect Bilirubin 1.0 (0.0-1.2) mg/dL AST 20 (13-39) Units/L ALT 22 (7-52) Units/L Alkaline Phosphatase 71 (34-104) Units/L Creatine Kinase 21 L (30-223) Units/L Troponin I < 0.03 (< 0.04) ng/mL Serum Total Protein 6.3 L (6.4-8.9) g/dL Albumin 4.2 (3.5-5.7) g/dL Globulin 2.1 L (2.4-3.5) g/dL Albumin/Globulin Ratio 2.0 (1.1-2.2) Urine Color (Yellow) Urine Clarity (Clear) Urine pH (5.0-8.0) pH Units Ur Specific [place] (1.010-1.025) Urine Protein (Neg-Trace) mg/dL Urine Glucose (UA) (Normal) mg/dL Urine Ketones (Negative) mg/dL Urine Blood (Negative) Urine Nitrite (Negative) Urine Bilirubin (Negative) Urine Urobilinogen (Normal) mg/dL Ur Leukocyte Esterase (Negative) Urine Microscopic RBC (0-3) per hpf Urine Microscopic WBC (0-3) per hpf Ur Squamous Epith Cells (None-Few) per lpf Urine Bacteria (None-Few) per hpf Hyaline Casts (None-Few) per lpf Urine Sperm Salicylates < 2.5 L (15.0-30.0) mg/dL Urine Opiates Screen (Ylbvwf=692) ng/mL Acetaminophen < 10 L (10-20) mcg/mL Ur Barbiturates Screen (Agminp=505) ng/mL Ur Phencyclidine Scrn (Cutoff=25) ng/mL Ur Amphetamines Screen (Bcairq=6830) ng/mL U Benzodiazepines Scrn (Naihcy=584) ng/mL Urine Cocaine Screen (Cutoff= 300) ng/mL U Marijuana (THC) Screen (Cutoff = 50) ng/mL Ur Drug Screen Interp Ethyl Alcohol < 10 (Less than 10) mg/dL 07/23/18 07/23/18 07/23/18 Range/Units 15:05 15:05 15:29 WBC (4.3-11.1) K/mcL RBC (4.19-5.50) M/mcL Hgb (12.9-16.9) g/dL Hct (37.5-50.1) % MCV (83.0-100.0) fL MCH (28.0-33.3) pg MCHC (31.6-35.5) g/dL RDW (11.5-14.5) % Plt Count (140-400) K/mcL MPV (9.4-12.4) fL Immature Gran % (0-4) % Seg Neutrophils % % Lymphocytes % % Monocytes % % Eosinophils % % Basophils % % Neutrophils # (1.6-8.9) K/mcL Lymphocytes # (0.6-4.6) K/mcL Monocytes # (0.0-1.3) K/mcL Eosinophils # (0.0-0.6) K/mcL Basophils # (0.0-0.2) K/mcL Nucleated RBCs/100 WBC (0) /100 WBC ABG pH 7.28 L (7.32-7.45) pH Units ABG pCO2 52 H (35-45) mmHg ABG pO2 73 L (85-104) mmHg ABG HCO3 24 (21-27) mEq/L ABG Total CO2 26 (20-26) mEq/L ABG O2 Saturation 92 L (95-98) % ABG Base Excess -3 L (-2 to 3) mEq/L O2 Delivery Device Bagging Inspired O2 100.0 (1-15=lpm [id number]=%) Sodium (136-145) mEq/L Potassium (3.5-5.1) mEq/L Chloride (98-107) mEq/L Carbon Dioxide (23-29) mEq/L BUN (6-20) mg/dL Creatinine (0.70-1.30) mg/dL Est GFR ( Amer) (> 60) Est GFR (Non-Af Amer) (> 60) BUN/Creatinine Ratio (6-26) Glucose (70-105) mg/dL Calculated Osmolality (280-300) Lactic Acid (0.5-2.2) mmol/L Calcium (8.6-10.3) mg/dL Total Bilirubin (0.3-1.0) mg/dL Direct Bilirubin (0.0-0.2) mg/dL Indirect Bilirubin (0.0-1.2) mg/dL AST (13-39) Units/L ALT (7-52) Units/L Alkaline Phosphatase (34-104) Units/L Creatine Kinase (30-223) Units/L Troponin I (< 0.04) ng/mL Serum Total Protein (6.4-8.9) g/dL Albumin (3.5-5.7) g/dL Globulin (2.4-3.5) g/dL Albumin/Globulin Ratio (1.1-2.2) Urine Color Yellow (Yellow) Urine Clarity Cloudy A (Clear) Urine pH 6.0 (5.0-8.0) pH Units Ur Specific [place] 1.013 (1.010-1.025) Urine Protein 30 H (Neg-Trace) mg/dL Urine Glucose (UA) Normal (Normal) mg/dL Urine Ketones Negative (Negative) mg/dL Urine Blood Large H (Negative) Urine Nitrite Negative (Negative) Urine Bilirubin Negative (Negative) Urine Urobilinogen Normal (Normal) mg/dL Ur Leukocyte Esterase Negative (Negative) Urine Microscopic RBC 0-3 (0-3) per hpf Urine Microscopic WBC 5-15 H (0-3) per hpf Ur Squamous Epith Cells Many H (None-Few) per lpf Urine Bacteria None Seen (None-Few) per hpf Hyaline Casts Few (None-Few) per lpf Urine Sperm Present Salicylates (15.0-30.0) mg/dL Urine Opiates Screen Negative (Rsxskf=421) ng/mL Acetaminophen (10-20) mcg/mL Ur Barbiturates Screen Negative (Hoydgv=533) ng/mL Ur Phencyclidine Scrn Negative (Cutoff=25) ng/mL Ur Amphetamines Screen Negative (Ynehru=8627) ng/mL U Benzodiazepines Scrn Positive H (Awfsbl=871) ng/mL Urine Cocaine Screen Negative (Cutoff= 300) ng/mL U Marijuana (THC) Screen Negative (Cutoff = 50) ng/mL Ur Drug Screen Interp See Below Ethyl Alcohol (Less than 10) mg/dL
[2018-07-23] MEDS: 0.9 % Sodium Chloride 1,000 ML IVC SCH ×2 (18:28→21:36)
--- NOTE | 2018-07-23 20:47 | Event Note ---
Date of Encounter: 07/24/18 Patient was seen and examined. Had lengthy discussion with patient's son and daughter and other family members in the room. All questions were answered and concerns addressed. Family asking if transfer to [facility] would be beneficial. I informed them that that we would be more than capable of managing his current medical condition here for the time being. Patient remains unresponsive and intubated after suicide attempt with ingestion of a large unknown quantity of benzodiazepines and muscle relaxers status post 8 minutes of ACLS with 4 rounds of epinephrine before return of spontaneous circulation. Vitals currently stable. We will continue fluids. Repeat EKG and blood work.
[2018-07-23 21:27] LABS: BUN/Creatinine Ratio 18 (6-26); Blood Urea Nitrogen 21 mg/dL (6-20); Calcium 7.5 mg/dL (8.6-10.3); Carbon Dioxide 22 mEq/L (23-29); Chloride 108 mEq/L (98-107); Glucose 140 mg/dL (70-105); Osmolality,Calculated 291 (280-300); Potassium 3.9 mEq/L (3.5-5.1); Sodium 138 mEq/L (136-145); eGFR For Non-African Americans > 60 (> 60)
[2018-07-23 22:01] LABS: Troponin I 0.12 ng/mL (< 0.04)
[2018-07-23] MEDS: Piperacillin/Tazobactam 3.375 GM in 0.9 % Sodium Chloride Mini Bag 100 ML IVPB SCH (22:43)
[2018-07-23 23:23] LABS: Alanine Aminotransferase 60 Units/L (7-52); Albumin 3.2 g/dL (3.5-5.7); Alkaline Phosphatase 56 Units/L (34-104); Aspartate Amino Transferase 42 Units/L (13-39); Bilirubin,Total 0.6 mg/dL (0.3-1.0); Globulin 1.6 g/dL (2.4-3.5); Total Protein 4.8 g/dL (6.4-8.9)
[2018-07-23] MEDS ORDERED: Norepinephrine 4 MG in D5% in Water 250 ML IVC SCH (23:30)
--- NOTE | 2018-07-23 23:32 | Procedure Note ---
Date of procedure: 07/23/18 Procedure: Procedure: Central Line Physician(s): Dr Heaven Chew Indication: Hypotension Anesthesia: 2% Lidocaine A time-out was completed, verifying correct patient, procedure, site, positioning, and implant(s) or special equipment if applicable. Patients right IJ area was prepped and draped in usual sterile fashion. 2% Lidocaine was used to anesthetize the area. A Triple lumen central line was introduced over a wire via the Seldinger technique, then sutured in place. Good blood flow was noted from all ports. The patient tolerated the procedure well. Chest x-ray was ordered to assess for pneumothorax and catheter placement. Complications: None Blood loss: Minimal Was there an assistant secretary present: No Estimated blood loss (cc): 5 Specimen: None Condition: critical Disposition: ICU
[2018-07-24] MEDS: *HR* LORazepam 2 MG/ML VIAL IVP PRN ×2 (01:49→02:59)
--- NOTE | 2018-07-24 02:43 | Event Note ---
Date of Encounter: 07/24/18 Time of Encounter: 02:42 I was contacted by the RN that this patient who was admitted during the day for cardiac arrest post exogenous drug intoxication had developed hypotension now refractory to fluid resuscitation. I proceeded to place an IJ CVC without complications to start vasopressor support. The patient later developed spontaneous bodily twitches which progressed. Will attempt a trial of short acting benzos with the concern that he may be developing myoclonic jerks or even seizures post cardiac arrest indicative of brain injury sustained from his admitting diagnosis. This is not a sign of positive outcomes and typically can be refractory to routine antiepileptic agents. He will benefit from neurologic clinical evaluation and imaging as well as an EEG. He is currently unstable and remains in a critical state with guarded prognosis. TATY BEAVER.
[2018-07-24] MEDS ORDERED: levETIRAcetam 1,000 MG in 0.9 % Sodium Chloride 100 ML IVPB ONE (02:53)
[2018-07-24] MEDS ORDERED: *HR* LORazepam 2 MG/ML VIAL ONE (02:54)
[2018-07-24] MEDS ORDERED: *HR* LORazepam 2 MG/ML VIAL IVP ONE (02:58)
[2018-07-24] MEDS ORDERED: Acetaminophen IV 1,000 MG/100 ML INFUS..BTL IVPB ONE (03:13)
[2018-07-24 04:47] LABS: ABG Base Excess -3 mEq/L (-2 to 3); ABG HCO3 21 mEq/L (21-27); ABG Oxygen Saturation 95 % (95-98); ABG PCO2 34 mmHg (35-45); ABG PH 7.41 pH Units (7.32-7.45); ABG PO2 75 mmHg (85-104); ABG TCO2 22 mEq/L (20-26); Blood Gas Modality ASSIST CONTROL; Blood Gas PEEP 5 cm H2O; Blood Gas Respiration Rate 16; Blood Gas VT 500 cc
[2018-07-24 05:05] LABS: Immature Granulocytes % 0.6 % (0-4); Red Cell Distribution Width 17.4 % (11.5-14.5)
[2018-07-24 05:07] LABS: Basophils % 0.2 %; Hematocrit 26.3 % (37.5-50.1); Hemoglobin 8.6 g/dL (12.9-16.9); Immature Platelets 4.9 % (1.1-6.1); Lymphocytes # 0.8 K/mcL (0.6-4.6); Lymphocytes % 15.5 %; Mean Corpuscular HGB Conc 32.7 g/dL (31.6-35.5); Mean Corpuscular Volume 94.9 fL (83.0-100.0); Mean Platelet Volume 10.2 fL (9.4-12.4); Monocytes # 0.6 K/mcL (0.0-1.3); Monocytes % 10.5 %; Neutrophils # 3.8 K/mcL (1.6-8.9); Nucleated Red Blood Cells 0.4 /100 WBC (0); Red Blood Count 2.77 M/mcL (4.19-5.50); Segmented Neutrophils % 73.2 %
[2018-07-24 05:16] LABS: INR 1.2; Prothrombin Time 13.3 Seconds (9.4-12.1)
[2018-07-24 05:19] LABS: Activated Partial Thrombo Time 26.5 Seconds (26.0-36.0)
[2018-07-24 05:23] LABS: BUN/Creatinine Ratio 16 (6-26); Blood Urea Nitrogen 19 mg/dL (6-20); Calcium 7.6 mg/dL (8.6-10.3); Carbon Dioxide 24 mEq/L (23-29); Chloride 106 mEq/L (98-107); Glucose 106 mg/dL (70-105); Magnesium 1.5 mg/dL (1.6-2.6); Osmolality,Calculated 293 (280-300); Phosphorous 2.1 mg/dL (2.7-4.5); Potassium 4.1 mEq/L (3.5-5.1); Sodium 140 mEq/L (136-145); eGFR For Non-African Americans > 60 (> 60)
[2018-07-24 05:29] LABS: Troponin I 0.07 ng/mL (< 0.04)
[2018-07-24 05:46] LABS: Platelet Count 99 K/mcL (140-400)
[2018-07-24] MEDS: 0.9 % Sodium Chloride 1,000 ML IVC SCH (05:46)
[2018-07-24] MEDS: Piperacillin/Tazobactam 3.375 GM in 0.9 % Sodium Chloride Mini Bag 100 ML IVPB SCH (05:47)
[2018-07-24] MEDS ORDERED: *HR* Heparin 5,000 UNIT/ML VIAL SQ SCH (06:00)
[2018-07-24 06:42] LABS: Anisocytosis 1+ (Not Present)
[2018-07-24 06:43] LABS: Platelet Estimate Decreased (Normal)
[2018-07-24] MEDS ORDERED: Phenytoin 1,000 MG in SYRINGE 1 EACH IVPB ONE (09:21)
[2018-07-24] MEDS ORDERED: Perflutren Lipid Microsphere 1.3 ML in 0.9 % Sodium Chloride 8.7 ML IVP ONE (09:30)
--- NOTE | 2018-07-24 09:44 | Discharge Summary ---
<Lukas Maldonadodoretha M - Last Filed: 07/24/18 14:28> Orders not resulted at time of discharge: Pending orders 07/23/18 15:02 ECG 12 lead ECG [ECG] Stat 07/23/18 20:42 EKG [ECG 12 lead ECG] [ECG] Stat 07/24/18 05:26 Culture,Blood [BC] Stat 07/24/18 07:26 LFTs [Hepatic Panel] Routine Date of Encounter: 07/24/18 - Discharge Medications Prescriptions: No Action RX: clonazePAM [Klonopin] 1 mg PO TID RX: HydrOXYzine Pamoate [Vistaril] 25 mg PO TID PRN PRN Reason: Anxiety RX: Gabapentin [Neurontin] 1 cap PO BID RX: Enalapril Maleate [Vasotec] 1 tab PO DAILY RX: Paroxetine [Paxil] 1 tab PO DAILY RX: Levothyroxine Sodium [Levoxyl] 1 tab PO DAILY RX: Temazepam [Restoril] 1 cap PO HS PRN PRN Reason: Sleep RX: predniSONE [PredniSONE] 1 tab PO DAILY RX: Buspirone HCl [Buspar] 1 tab PO TID RX: DiphenhydraMINE [Benadryl] 2 cap PO Q8H Home Medications: RX: clonazePAM [Klonopin] 1 mg PO TID 03/11/15 [History] RX: HydrOXYzine Pamoate [Vistaril] 25 mg PO TID PRN 05/10/16 [History] RX: Buspirone HCl [Buspar] 1 tab PO TID 06/19/18 [History] RX: DiphenhydraMINE [Benadryl] 2 cap PO Q8H 06/19/18 [History] RX: Enalapril Maleate [Vasotec] 1 tab PO DAILY 06/19/18 [History] RX: Gabapentin [Neurontin] 1 cap PO BID 06/19/18 [History] RX: Levothyroxine Sodium [Levoxyl] 1 tab PO DAILY 06/19/18 [History] RX: Paroxetine [Paxil] 1 tab PO DAILY 06/19/18 [History] RX: Temazepam [Restoril] 1 cap PO HS PRN 06/19/18 [History] RX: predniSONE [PredniSONE] 1 tab PO DAILY 06/19/18 [History] Allergies/Adverse Reactions: Allergy/AdvReac Type Severity Reaction Status Date / Time No Known Allergies Allergy Verified 03/10/15 17:19 Labs on day of discharge: Labs from last 24 hours 07/24/18 07/24/18 07/24/18 11:30 04:48 04:46 WBC RBC Hgb Hct MCV MCH MCHC RDW Plt Count MPV Immature Gran % Seg Neutrophils % Lymphocytes % Monocytes % Eosinophils % Basophils % Neutrophils # Lymphocytes # Monocytes # Eosinophils # Basophils # Nucleated RBCs/100 WBC Platelet Estimate Immature Plt Fraction Anisocytosis PT 13.3 H INR 1.2 APTT 26.5 Sample Site ABG pH ABG pCO2 ABG pO2 ABG HCO3 ABG Total CO2 ABG O2 Saturation ABG Base Excess Respiration Rate O2 Delivery Device Blood Gas Modality Inspired O2 Tidal Volume PEEP Sodium Potassium Chloride Carbon Dioxide BUN Creatinine Est GFR ( Amer) Est GFR (Non-Af Amer) BUN/Creatinine Ratio Glucose POC Glucose 98 Calculated Osmolality Lactic Acid 1.4 Calcium Phosphorus Magnesium Total Bilirubin Direct Bilirubin Indirect Bilirubin AST ALT Alkaline Phosphatase Creatine Kinase Troponin I Serum Total Protein Albumin Globulin Albumin/Globulin Ratio Urine Color Urine Clarity Urine pH Ur Specific [place] Urine Protein Urine Glucose (UA) Urine Ketones Urine Blood Urine Nitrite Urine Bilirubin Urine Urobilinogen Ur Leukocyte Esterase Urine Microscopic RBC Urine Microscopic WBC Ur Squamous Epith Cells Urine Bacteria Hyaline Casts Urine Sperm Salicylates Urine Opiates Screen Acetaminophen Ur Barbiturates Screen Ur Phencyclidine Scrn Ur Amphetamines Screen U Benzodiazepines Scrn Urine Cocaine Screen U Marijuana (THC) Screen Ur Drug Screen Interp Ethyl Alcohol 07/24/18 07/24/18 07/24/18 04:44 04:37 04:37 WBC 5.2 D RBC 2.77 L Hgb 8.6 L D Hct 26.3 L MCV 94.9 MCH 31.0 MCHC 32.7 RDW 17.4 H Plt Count 99 L MPV 10.2 Immature Gran % 0.6 Seg Neutrophils % 73.2 Lymphocytes % 15.5 Monocytes % 10.5 Eosinophils % 0.0 Basophils % 0.2 Neutrophils # 3.8 Lymphocytes # 0.8 Monocytes # 0.6 Eosinophils # 0.0 Basophils # 0.0 Nucleated RBCs/100 WBC 0.4 H Platelet Estimate Decreased L Immature Plt Fraction 4.9 Anisocytosis 1+ A PT INR APTT Sample Site Art Line ABG pH 7.41 ABG pCO2 34 L ABG pO2 75 L ABG HCO3 21 ABG Total CO2 22 ABG O2 Saturation 95 ABG Base Excess -3 L Respiration Rate 16 O2 Delivery Device Adult Vent Blood Gas Modality ASSIST CONTROL Inspired O2 40.0 Tidal Volume 500 PEEP 5 Sodium 140 Potassium 4.1 Chloride 106 Carbon Dioxide 24 BUN 19 Creatinine 1.21 Est GFR ( Amer) > 60 Est GFR (Non-Af Amer) > 60 BUN/Creatinine Ratio 16 Glucose 106 H POC Glucose Calculated Osmolality 293 Lactic Acid Calcium 7.6 L Phosphorus 2.1 L Magnesium 1.5 L Total Bilirubin Direct Bilirubin Indirect Bilirubin AST ALT Alkaline Phosphatase Creatine Kinase Troponin I 0.07 H* Serum Total Protein Albumin Globulin Albumin/Globulin Ratio Urine Color Urine Clarity Urine pH Ur Specific [place] Urine Protein Urine Glucose (UA) Urine Ketones Urine Blood Urine Nitrite Urine Bilirubin Urine Urobilinogen Ur Leukocyte Esterase Urine Microscopic RBC Urine Microscopic WBC Ur Squamous Epith Cells Urine Bacteria Hyaline Casts Urine Sperm Salicylates Urine Opiates Screen Acetaminophen Ur Barbiturates Screen Ur Phencyclidine Scrn Ur Amphetamines Screen U Benzodiazepines Scrn Urine Cocaine Screen U Marijuana (THC) Screen Ur Drug Screen Interp Ethyl Alcohol 07/23/18 07/23/18 07/23/18 23:39 20:47 18:52 WBC RBC Hgb Hct MCV MCH MCHC RDW Plt Count MPV Immature Gran % Seg Neutrophils % Lymphocytes % Monocytes % Eosinophils % Basophils % Neutrophils # Lymphocytes # Monocytes # Eosinophils # Basophils # Nucleated RBCs/100 WBC Platelet Estimate Immature Plt Fraction Anisocytosis PT INR APTT Sample Site ABG pH ABG pCO2 ABG pO2 ABG HCO3 ABG Total CO2 ABG O2 Saturation ABG Base Excess Respiration Rate O2 Delivery Device Blood Gas Modality Inspired O2 Tidal Volume PEEP Sodium 138 Potassium 3.9 Chloride 108 H Carbon Dioxide 22 L BUN 21 H Creatinine 1.17 Est GFR ( Amer) > 60 Est GFR (Non-Af Amer) > 60 BUN/Creatinine Ratio 18 Glucose 140 H POC Glucose 98 260 H Calculated Osmolality 291 Lactic Acid Calcium 7.5 L Phosphorus Magnesium Total Bilirubin 0.6 Direct Bilirubin Indirect Bilirubin AST 42 H ALT 60 H Alkaline Phosphatase 56 Creatine Kinase Troponin I 0.12 H* Serum Total Protein 4.8 L Albumin 3.2 L Globulin 1.6 L Albumin/Globulin Ratio 2.0 Urine Color Urine Clarity Urine pH Ur Specific [place] Urine Protein Urine Glucose (UA) Urine Ketones Urine Blood Urine Nitrite Urine Bilirubin Urine Urobilinogen Ur Leukocyte Esterase Urine Microscopic RBC Urine Microscopic WBC Ur Squamous Epith Cells Urine Bacteria Hyaline Casts Urine Sperm Salicylates Urine Opiates Screen Acetaminophen Ur Barbiturates Screen Ur Phencyclidine Scrn Ur Amphetamines Screen U Benzodiazepines Scrn Urine Cocaine Screen U Marijuana (THC) Screen Ur Drug Screen Interp Ethyl Alcohol 07/23/18 07/23/18 07/23/18 15:29 15:05 15:05 WBC RBC Hgb Hct MCV MCH MCHC RDW Plt Count MPV Immature Gran % Seg Neutrophils % Lymphocytes % Monocytes % Eosinophils % Basophils % Neutrophils # Lymphocytes # Monocytes # Eosinophils # Basophils # Nucleated RBCs/100 WBC Platelet Estimate Immature Plt Fraction Anisocytosis PT INR APTT Sample Site ABG pH 7.28 L ABG pCO2 52 H ABG pO2 73 L ABG HCO3 24 ABG Total CO2 26 ABG O2 Saturation 92 L ABG Base Excess -3 L Respiration Rate O2 Delivery Device Bagging Blood Gas Modality Inspired O2 100.0 Tidal Volume PEEP Sodium Potassium Chloride Carbon Dioxide BUN Creatinine Est GFR ( Amer) Est GFR (Non-Af Amer) BUN/Creatinine Ratio Glucose POC Glucose Calculated Osmolality Lactic Acid Calcium Phosphorus Magnesium Total Bilirubin Direct Bilirubin Indirect Bilirubin AST ALT Alkaline Phosphatase Creatine Kinase Troponin I Serum Total Protein Albumin Globulin Albumin/Globulin Ratio Urine Color Yellow Urine Clarity Cloudy A Urine pH 6.0 Ur Specific [place] 1.013 Urine Protein 30 H Urine Glucose (UA) Normal Urine Ketones Negative Urine Blood Large H Urine Nitrite Negative Urine Bilirubin Negative Urine Urobilinogen Normal Ur Leukocyte Esterase Negative Urine Microscopic RBC 0-3 Urine Microscopic WBC 5-15 H Ur Squamous Epith Cells Many H Urine Bacteria None Seen Hyaline Casts Few Urine Sperm Present Salicylates Urine Opiates Screen Negative Acetaminophen Ur Barbiturates Screen Negative Ur Phencyclidine Scrn Negative Ur Amphetamines Screen Negative U Benzodiazepines Scrn Positive H Urine Cocaine Screen Negative U Marijuana (THC) Screen Negative Ur Drug Screen Interp See Below Ethyl Alcohol 07/23/18 07/23/18 07/23/18 14:29 14:29 14:29 WBC 10.7 RBC 3.57 L Hgb 11.3 L Hct 33.8 L MCV 94.7 MCH 31.7 MCHC 33.4 RDW 17.1 H Plt Count 175 MPV 11.0 Immature Gran % 0.6 Seg Neutrophils % 65.2 Lymphocytes % 24.1 Monocytes % 9.6 Eosinophils % 0.1 Basophils % 0.4 Neutrophils # 7.0 Lymphocytes # 2.6 Monocytes # 1.0 Eosinophils # 0.0 Basophils # 0.0 Nucleated RBCs/100 WBC 0.3 H Platelet Estimate Immature Plt Fraction Anisocytosis PT INR APTT Sample Site ABG pH ABG pCO2 ABG pO2 ABG HCO3 ABG Total CO2 ABG O2 Saturation ABG Base Excess Respiration Rate O2 Delivery Device Blood Gas Modality Inspired O2 Tidal Volume PEEP Sodium 135 L Potassium 3.9 Chloride 100 Carbon Dioxide 29 BUN 21 H Creatinine 1.34 H Est GFR ( Amer) > 60 Est GFR (Non-Af Amer) 57 L BUN/Creatinine Ratio 16 Glucose 344 H POC Glucose Calculated Osmolality 297 Lactic Acid 1.6 Calcium 8.7 Phosphorus Magnesium Total Bilirubin 1.2 H Direct Bilirubin 0.2 Indirect Bilirubin 1.0 AST 20 ALT 22 Alkaline Phosphatase 71 Creatine Kinase 21 L Troponin I < 0.03 Serum Total Protein 6.3 L Albumin 4.2 Globulin 2.1 L Albumin/Globulin Ratio 2.0 Urine Color Urine Clarity Urine pH Ur Specific [place] Urine Protein Urine Glucose (UA) Urine Ketones Urine Blood Urine Nitrite Urine Bilirubin Urine Urobilinogen Ur Leukocyte Esterase Urine Microscopic RBC Urine Microscopic WBC Ur Squamous Epith Cells Urine Bacteria Hyaline Casts Urine Sperm Salicylates < 2.5 L Urine Opiates Screen Acetaminophen < 10 L Ur Barbiturates Screen Ur Phencyclidine Scrn Ur Amphetamines Screen U Benzodiazepines Scrn Urine Cocaine Screen U Marijuana (THC) Screen Ur Drug Screen Interp Ethyl Alcohol < 10 Preliminary micro results at discharge 07/24/18 05:26 Blood Culture - Preliminary Peripheral Venipuncture Culture is incubating and being continuously monitored for growth. Final report to follow. - Impressions ITS Impressions Chest X-Ray 07/23/18 00:00 IMPRESSION: Endotracheal tube tip remains mild positioned, at the C7-T1 level. That should be advanced approximately 6 additional cm for more optimal placement. D/ / Sp Medina MD / Sp Medina MD Interpreting Provider: Sp Medina MD Abdomen/Pelvis CT 07/23/18 15:01 IMPRESSION: 1. No acute intra-abdominal or pelvic abnormality. 2. Fluid-filled loops of small bowel may relate to ileus or gastroenteritis. 3. Bilateral lower lobe pneumonia. D/ / 07/23/2018 16:33:46 Mateo Sanon MD / [facility] Interpreting Provider: Mateo Sanon MD Cervical Spine CT 07/23/18 15:01 IMPRESSION: Head CT: No acute intracranial abnormality. Cervical spine CT: Limited by motion artifact and streak artifact. Given that limitation, no acute fracture or traumatic abnormalities seen. Again noted is a superiorly placed endotracheal tube, previously discussed on the chest radiograph. D/ / Sp Medina MD / Sp Medina MD Interpreting Provider: Sp Medina MD Chest CTA 07/23/18 15:01 IMPRESSION: 1. No evidence of acute pulmonary embolism. 2. Endotracheal tube is positioned at the thoracic inlet. 3. Dense bibasilar atelectasis. D/ / 07/23/2018 16:33:10 Alexander Rosas MD / [facility] Interpreting Provider: lAexander Rosas MD Chest X-Ray 07/23/18 15:01 IMPRESSION: The patient has been intubated. The tip of the endotracheal tube is around the C7-T1 level near the thoracic inlet. This should be advanced. Low lung volumes. D/ / 07/23/2018 15:51:31 Caity Sue MD / [facility] Interpreting Provider: Caity Sue MD KUB X-Ray 07/23/18 15:01 IMPRESSION: Proximal port and tip of the NG tube is in the fundus of the stomach. There is mild dilatation of the stomach and proximal small bowel. D/ / 07/23/2018 15:49:52 Caity Sue MD / [facility] Interpreting Provider: Caity Sue MD Head CT 07/23/18 15:02 IMPRESSION: Head CT: No acute intracranial abnormality. Cervical spine CT: Limited by motion artifact and streak artifact. Given that limitation, no acute fracture or traumatic abnormalities seen. Again noted is a superiorly placed endotracheal tube, previously discussed on the chest radiograph. D/ / Sp Medina MD / Sp Medina MD Interpreting Provider: Sp Medina MD Chest X-Ray 07/23/18 16:53 IMPRESSION: Tip of the enteric tube approximately 3.4 cm above the [place]enia. D/ / Roger Bonilla MD / Roger Bonilla MD Interpreting Provider: Roger Bonilla MD Chest X-Ray 07/23/18 19:22 IMPRESSION: Multifocal airspace disease bilaterally. Some of this is improved and there is segmental increase in the right lung base along the diaphragm. Continued follow-up recommended ET tube tip projects at the top of the aortic arch. D/ / Michael Bloom / Michael Bloom Interpreting Provider: Michael Bloom Chest X-Ray 07/23/18 20:32 IMPRESSION: Tip of the endotracheal tube projects approximately 4.5 cm above the yesenia. D/ / Sp Medina MD / Sp Medina MD Interpreting Provider: Sp Medina MD Chest X-Ray 07/23/18 22:15 IMPRESSION: Status post placement of right internal jugular central venous catheter, without gross pneumothorax. Persistent bilateral airspace disease, slightly increased on the left as compared to prior. D/ / Marcio Martinez MD / Marcio Martinez MD Interpreting Provider: Marcio Martinez MD Echocardiogram 07/24/18 17:49 Impressions: LVEF 60%. Moderate concentric left ventricular hypertrophy. Normal left ventricular diastolic function. Right ventricle was not well visualized. Grossly appears normal in size and function. No obvious significant valvular dysfunction No evidence of pulmonary hypertension based on TR jet. Left Ventricular Wall Motion: Rest Echo Findings All wall segments showed normal motion. Findings: Study Quality * Technically adequate exam. ECG Findings * Normal sinus rhythm. Left Ventricle * LVEF 60%. * Moderate concentric left ventricular hypertrophy. * Normal LV chamber size and systolic function. * Normal left ventricular diastolic function. * Definity echo contrast was used. Right Ventricle * Normal right ventricular structure and function. Left Atrium * Normal left atrial size. Right Atrium * Normal right atrial size. Aortic Valve * Trileaflet aortic valve. * Mildly sclerotic aortic valve leaflets. * No aortic regurgitation. * No aortic stenosis. Mitral Valve * Normal mitral valve structure. * No mitral regurgitation. * No mitral stenosis. Tricuspid Valve * Normal tricuspid valve structure. * Trace tricuspid regurgitation. * No tricuspid stenosis. * No evidence of pulmonary hypertension. Pulmonic Valve * Pulmonic valve not well visualized. Aorta * Normally sized aortic root. Pericardium * The pericardium appears normal. IVC * The IVC is dilated but cannot be used to estimate RA pressure as patient is on ventillator. Date of admission: 07/23/18 17:11 Primary care physician: Ute Conway CNP Consults: 07/23/18 17:08 Consult to Pulmonology [CONS] Routine Consulting Provider: [facility] Reason for Consult: respiratory failure s/p clonipin and flexeril overdose Call Completed: No 07/23/18 17:15 Consult to Nephrology [CONS] Routine Consulting Provider: Kidney Radha/ORIDEEPALI/DARIEN/NATASHA Reason for Consult: medication overdose Call Completed: Yes 07/24/18 04:31 Consult to Neurology [CONS] Routine Consulting Provider: [facility] Reason for Consult: Assess for hypoxic brain injury after overdose and cardiac arrest now developing seizure-like activity. Call Completed: Yes - Patient Status Disposition: Transfer Short-Term Hosp Condition: Critical - Discharge Instructions Follow Up With: Ute Conway CNP [Primary Care Provider] - Forms: ED Satisfaction Letter - Hospital Course Hospital course: Mr. Beltran is a 48 year old male - Time Spent with Patient Total time spent providing and/or coordinating discharge services: Physical Examination Vital Signs: Vital Signs, Last 4 Hours Pulse Resp BP Pulse Ox 07/24/18 11:16 16 100 07/24/18 11:00 88 16 171/65 100 - Attending Attestation This is pulmonary critical care consultation as well as discharge summary. I examined this patient and my medical decision-making was reviewed with the Resident Physician. I agree with the documented findings, disposition and treatment plan as described except to the extent set forth below. Patient seen and examined. Labs, radiology, chart personally reviewed. Agree with resident's history and physical, assessment, plan with following comments: CHANGE AGENT: Patient does not follows commands, and fortunately there is evidence of anoxic/hypoxic encephalopathy with jerky movement and need some sedation for vent synchrony. I had a family meeting in the presence of the nurse and explained to them that prognosis is poor, however we have to wait and give some time for clinical course. Patient had many questions and have answered them. Please refer to the charge nurse and nurses taking care of the patient noted for further detail. Family requested patient to be transferred to [facility] and they have explained to them a doubt prognosis will jorgensen e, however they requested that and they understand they might be responsible for paying for the transport. Discussed with Dr. Hassan from neurology and appreciate his assessment. Pulmonary: Acceptable oxygenation and ventilation. Overall there is no significant breathing over the ventilator, however it does not seems at this time he has evidence of any brain since he is breathing over the vent slightly. Cardiovascular: Relatively stable and even though there are risks for transportation, I feel he is stable enough to be transferred. GI: Nutrition per dietary and GI prophylaxis per routine Heme: DVT prophylaxis per routine ID: Aspiration pneumonia is possibility. Renal; urine out put and renal function reviewed Endorcine: blood glucose is monitored Lines: all lines checked and no evidence of infections Skin: skin care to prevent pressure ulcers per nursing routine care CODE STATUS: Patient remained full code. I spent 90 min of Critical Care time with this patient and arrangement for transfer. It involved decision making of high complexity to assess, manipulate, and support vital organ system failure and/or to prevent further life threatening deterioration of the patient's condition. The time involved in the performance of separately reportable procedures was not counted toward critical care time. <Fariha Becerril - Last Filed: 07/24/18 17:58> - NOTES TO OUTPATIENT PROVIDER Notes to Outpatient Provider: . Orders not resulted at time of discharge: Pending orders 07/23/18 15:02 ECG 12 lead ECG [ECG] Stat 07/23/18 17:49 EV echocardiogram Routine 07/23/18 20:42 EKG [ECG 12 lead ECG] [ECG] Stat 07/24/18 05:26 Culture,Blood [BC] Stat 07/24/18 07:26 LFTs [Hepatic Panel] Routine Date of Encounter: 07/24/18 Time of Encounter: 17:09 - Discharge Diagnosis (1) Cardiac arrest Priority: Primary Status: Acute (2) Benzodiazepine (tranquilizer) overdose Priority: Primary Status: Acute Qualifiers: Encounter type: initial encounter Injury intent: intentional self-harm Qualified Code(s): T42.4X2A - Poisoning by benzodiazepines, intentional self- harm, initial encounter (3) Acute kidney injury Priority: Secondary Status: Acute (4) Acute respiratory failure with hypoxia Priority: Primary Status: Acute (5) Aspiration pneumonia Priority: Primary Status: Acute Procedures and tests throughout hospitalization: . Labs on day of discharge: Labs from last 24 hours 07/24/18 07/24/18 07/24/18 04:48 04:46 04:44 WBC RBC Hgb Hct MCV MCH MCHC RDW Plt Count MPV Immature Gran % Seg Neutrophils % Lymphocytes % Monocytes % Eosinophils % Basophils % Neutrophils # Lymphocytes # Monocytes # Eosinophils # Basophils # Nucleated RBCs/100 WBC Platelet Estimate Immature Plt Fraction Anisocytosis PT 13.3 H INR 1.2 APTT 26.5 Sample Site Art Line ABG pH 7.41 ABG pCO2 34 L ABG pO2 75 L ABG HCO3 21 ABG Total CO2 22 ABG O2 Saturation 95 ABG Base Excess -3 L Respiration Rate 16 O2 Delivery Device Adult Vent Blood Gas Modality ASSIST CONTROL Inspired O2 40.0 Tidal Volume 500 PEEP 5 Sodium Potassium Chloride Carbon Dioxide BUN Creatinine Est GFR ( Amer) Est GFR (Non-Af Amer) BUN/Creatinine Ratio Glucose POC Glucose Calculated Osmolality Lactic Acid 1.4 Calcium Phosphorus Magnesium Total Bilirubin Direct Bilirubin Indirect Bilirubin AST ALT Alkaline Phosphatase Creatine Kinase Troponin I Serum Total Protein Albumin Globulin Albumin/Globulin Ratio Urine Color Urine Clarity Urine pH Ur Specific [place] Urine Protein Urine Glucose (UA) Urine Ketones Urine Blood Urine Nitrite Urine Bilirubin Urine Urobilinogen Ur Leukocyte Esterase Urine Microscopic RBC Urine Microscopic WBC Ur Squamous Epith Cells Urine Bacteria Hyaline Casts Urine Sperm Salicylates Urine Opiates Screen Acetaminophen Ur Barbiturates Screen Ur Phencyclidine Scrn Ur Amphetamines Screen U Benzodiazepines Scrn Urine Cocaine Screen U Marijuana (THC) Screen Ur Drug Screen Interp Ethyl Alcohol 07/24/18 07/24/18 07/23/18 04:37 04:37 23:39 WBC 5.2 D RBC 2.77 L Hgb 8.6 L D Hct 26.3 L MCV 94.9 MCH 31.0 MCHC 32.7 RDW 17.4 H Plt Count 99 L MPV 10.2 Immature Gran % 0.6 Seg Neutrophils % 73.2 Lymphocytes % 15.5 Monocytes % 10.5 Eosinophils % 0.0 Basophils % 0.2 Neutrophils # 3.8 Lymphocytes # 0.8 Monocytes # 0.6 Eosinophils # 0.0 Basophils # 0.0 Nucleated RBCs/100 WBC 0.4 H Platelet Estimate Decreased L Immature Plt Fraction 4.9 Anisocytosis 1+ A PT INR APTT Sample Site ABG pH ABG pCO2 ABG pO2 ABG HCO3 ABG Total CO2 ABG O2 Saturation ABG Base Excess Respiration Rate O2 Delivery Device Blood Gas Modality Inspired O2 Tidal Volume PEEP Sodium 140 Potassium 4.1 Chloride 106 Carbon Dioxide 24 BUN 19 Creatinine 1.21 Est GFR ( Amer) > 60 Est GFR (Non-Af Amer) > 60 BUN/Creatinine Ratio 16 Glucose 106 H POC Glucose 98 Calculated Osmolality 293 Lactic Acid Calcium 7.6 L Phosphorus 2.1 L Magnesium 1.5 L Total Bilirubin Direct Bilirubin Indirect Bilirubin AST ALT Alkaline Phosphatase Creatine Kinase Troponin I 0.07 H* Serum Total Protein Albumin Globulin Albumin/Globulin Ratio Urine Color Urine Clarity Urine pH Ur Specific [place] Urine Protein Urine Glucose (UA) Urine Ketones Urine Blood Urine Nitrite Urine Bilirubin Urine Urobilinogen Ur Leukocyte Esterase Urine Microscopic RBC Urine Microscopic WBC Ur Squamous Epith Cells Urine Bacteria Hyaline Casts Urine Sperm Salicylates Urine Opiates Screen Acetaminophen Ur Barbiturates Screen Ur Phencyclidine Scrn Ur Amphetamines Screen U Benzodiazepines Scrn Urine Cocaine Screen U Marijuana (THC) Screen Ur Drug Screen Interp Ethyl Alcohol 07/23/18 07/23/18 07/23/18 20:47 18:52 15:29 WBC RBC Hgb Hct MCV MCH MCHC RDW Plt Count MPV Immature Gran % Seg Neutrophils % Lymphocytes % Monocytes % Eosinophils % Basophils % Neutrophils # Lymphocytes # Monocytes # Eosinophils # Basophils # Nucleated RBCs/100 WBC Platelet Estimate Immature Plt Fraction Anisocytosis PT INR APTT Sample Site ABG pH 7.28 L ABG pCO2 52 H ABG pO2 73 L ABG HCO3 24 ABG Total CO2 26 ABG O2 Saturation 92 L ABG Base Excess -3 L Respiration Rate O2 Delivery Device Bagging Blood Gas Modality Inspired O2 100.0 Tidal Volume PEEP Sodium 138 Potassium 3.9 Chloride 108 H Carbon Dioxide 22 L BUN 21 H Creatinine 1.17 Est GFR ( Amer) > 60 Est GFR (Non-Af Amer) > 60 BUN/Creatinine Ratio 18 Glucose 140 H POC Glucose 260 H Calculated Osmolality 291 Lactic Acid Calcium 7.5 L Phosphorus Magnesium Total Bilirubin 0.6 Direct Bilirubin Indirect Bilirubin AST 42 H ALT 60 H Alkaline Phosphatase 56 Creatine Kinase Troponin I 0.12 H* Serum Total Protein 4.8 L Albumin 3.2 L Globulin 1.6 L Albumin/Globulin Ratio 2.0 Urine Color Urine Clarity Urine pH Ur Specific [place] Urine Protein Urine Glucose (UA) Urine Ketones Urine Blood Urine Nitrite Urine Bilirubin Urine Urobilinogen Ur Leukocyte Esterase Urine Microscopic RBC Urine Microscopic WBC Ur Squamous Epith Cells Urine Bacteria Hyaline Casts Urine Sperm Salicylates Urine Opiates Screen Acetaminophen Ur Barbiturates Screen Ur Phencyclidine Scrn Ur Amphetamines Screen U Benzodiazepines Scrn Urine Cocaine Screen U Marijuana (THC) Screen Ur Drug Screen Interp Ethyl Alcohol 07/23/18 07/23/18 07/23/18 15:05 15:05 14:29 WBC RBC Hgb Hct MCV MCH MCHC RDW Plt Count MPV Immature Gran % Seg Neutrophils % Lymphocytes % Monocytes % Eosinophils % Basophils % Neutrophils # Lymphocytes # Monocytes # Eosinophils # Basophils # Nucleated RBCs/100 WBC Platelet Estimate Immature Plt Fraction Anisocytosis PT INR APTT Sample Site ABG pH ABG pCO2 ABG pO2 ABG HCO3 ABG Total CO2 ABG O2 Saturation ABG Base Excess Respiration Rate O2 Delivery Device Blood Gas Modality Inspired O2 Tidal Volume PEEP Sodium Potassium Chloride Carbon Dioxide BUN Creatinine Est GFR ( Amer) Est GFR (Non-Af Amer) BUN/Creatinine Ratio Glucose POC Glucose Calculated Osmolality Lactic Acid 1.6 Calcium Phosphorus Magnesium Total Bilirubin Direct Bilirubin Indirect Bilirubin AST ALT Alkaline Phosphatase Creatine Kinase Troponin I Serum Total Protein Albumin Globulin Albumin/Globulin Ratio Urine Color Yellow Urine Clarity Cloudy A Urine pH 6.0 Ur Specific [place] 1.013 Urine Protein 30 H Urine Glucose (UA) Normal Urine Ketones Negative Urine Blood Large H Urine Nitrite Negative Urine Bilirubin Negative Urine Urobilinogen Normal Ur Leukocyte Esterase Negative Urine Microscopic RBC 0-3 Urine Microscopic WBC 5-15 H Ur Squamous Epith Cells Many H Urine Bacteria None Seen Hyaline Casts Few Urine Sperm Present Salicylates Urine Opiates Screen Negative Acetaminophen Ur Barbiturates Screen Negative Ur Phencyclidine Scrn Negative Ur Amphetamines Screen Negative U Benzodiazepines Scrn Positive H Urine Cocaine Screen Negative U Marijuana (THC) Screen Negative Ur Drug Screen Interp See Below Ethyl Alcohol 07/23/18 07/23/18 14:29 14:29 WBC 10.7 RBC 3.57 L Hgb 11.3 L Hct 33.8 L MCV 94.7 MCH 31.7 MCHC 33.4 RDW 17.1 H Plt Count 175 MPV 11.0 Immature Gran % 0.6 Seg Neutrophils % 65.2 Lymphocytes % 24.1 Monocytes % 9.6 Eosinophils % 0.1 Basophils % 0.4 Neutrophils # 7.0 Lymphocytes # 2.6 Monocytes # 1.0 Eosinophils # 0.0 Basophils # 0.0 Nucleated RBCs/100 WBC 0.3 H Platelet Estimate Immature Plt Fraction Anisocytosis PT INR APTT Sample Site ABG pH ABG pCO2 ABG pO2 ABG HCO3 ABG Total CO2 ABG O2 Saturation ABG Base Excess Respiration Rate O2 Delivery Device Blood Gas Modality Inspired O2 Tidal Volume PEEP Sodium 135 L Potassium 3.9 Chloride 100 Carbon Dioxide 29 BUN 21 H Creatinine 1.34 H Est GFR ( Amer) > 60 Est GFR (Non-Af Amer) 57 L BUN/Creatinine Ratio 16 Glucose 344 H POC Glucose Calculated Osmolality 297 Lactic Acid Calcium 8.7 Phosphorus Magnesium Total Bilirubin 1.2 H Direct Bilirubin 0.2 Indirect Bilirubin 1.0 AST 20 ALT 22 Alkaline Phosphatase 71 Creatine Kinase 21 L Troponin I < 0.03 Serum Total Protein 6.3 L Albumin 4.2 Globulin 2.1 L Albumin/Globulin Ratio 2.0 Urine Color Urine Clarity Urine pH Ur Specific [place] Urine Protein Urine Glucose (UA) Urine Ketones Urine Blood Urine Nitrite Urine Bilirubin Urine Urobilinogen Ur Leukocyte Esterase Urine Microscopic RBC Urine Microscopic WBC Ur Squamous Epith Cells Urine Bacteria Hyaline Casts Urine Sperm Salicylates < 2.5 L Urine Opiates Screen Acetaminophen < 10 L Ur Barbiturates Screen Ur Phencyclidine Scrn Ur Amphetamines Screen U Benzodiazepines Scrn Urine Cocaine Screen U Marijuana (THC) Screen Ur Drug Screen Interp Ethyl Alcohol < 10 - Impressions ITS Impressions Chest X-Ray 07/23/18 00:00 IMPRESSION: Endotracheal tube tip remains mild positioned, at the C7-T1 level. That should be advanced approximately 6 additional cm for more optimal placement. D/ / Sp Medina MD / Sp Medina MD Interpreting Provider: Sp Medina MD Abdomen/Pelvis CT 07/23/18 15:01 IMPRESSION: 1. No acute intra-abdominal or pelvic abnormality. 2. Fluid-filled loops of small bowel may relate to ileus or gastroenteritis. 3. Bilateral lower lobe pneumonia. D/ / 07/23/2018 16:33:46 Mateo Sanon MD / located within [facility] Interpreting Provider: Mateo Sanon MD Cervical Spine CT 07/23/18 15:01 IMPRESSION: Head CT: No acute intracranial abnormality. Cervical spine CT: Limited by motion artifact and streak artifact. Given that limitation, no acute fracture or traumatic abnormalities seen. Again noted is a superiorly placed endotracheal tube, previously discussed on the chest radiograph. D/ / Sp Medina MD / Sp Medina MD Interpreting Provider: Sp Medina MD Chest CTA 07/23/18 15:01 IMPRESSION: 1. No evidence of acute pulmonary embolism. 2. Endotracheal tube is positioned at the thoracic inlet. 3. Dense bibasilar atelectasis. D/ / 07/23/2018 16:33:10 Alexander Rosas MD / bradley Interpreting Provider: Alexander Rosas MD Chest X-Ray 07/23/18 15:01 IMPRESSION: The patient has been intubated. The tip of the endotracheal tube is around the C7-T1 level near the thoracic inlet. This should be advanced. Low lung volumes. D/ / 07/23/2018 15:51:31 Caity Sue MD / bradley Interpreting Provider: Caity Sue MD KUB X-Ray 07/23/18 15:01 IMPRESSION: Proximal port and tip of the NG tube is in the fundus of the stomach. There is mild dilatation of the stomach and proximal small bowel. D/ / 07/23/2018 15:49:52 Caity Sue MD / bradley Interpreting Provider: Caity Sue MD Head CT 07/23/18 15:02 IMPRESSION: Head CT: No acute intracranial abnormality. Cervical spine CT: Limited by motion artifact and streak artifact. Given that limitation, no acute fracture or traumatic abnormalities seen. Again noted is a superiorly placed endotracheal tube, previously discussed on the chest radiograph. D/ / Sp Medina MD / Sp Medina MD Interpreting Provider: Sp Medina MD Chest X-Ray 07/23/18 16:53 IMPRESSION: Tip of the enteric tube approximately 3.4 cm above the yesenia. D/ / Roger Bonilla MD / Roger Bonilla MD Interpreting Provider: Roger Bonilla MD Chest X-Ray 07/23/18 19:22 IMPRESSION: Multifocal airspace disease bilaterally. Some of this is improved and there is segmental increase in the right lung base along the diaphragm. Continued follow-up recommended ET tube tip projects at the top of the aortic arch. D/ / Michael Bloom / Michael Bloom Interpreting Provider: Michael Bloom Chest X-Ray 07/23/18 20:32 IMPRESSION: Tip of the endotracheal tube projects approximately 4.5 cm above the yesenia. D/ / Sp Medina MD / Sp Medina MD Interpreting Provider: Sp Medina MD Chest X-Ray 07/23/18 22:15 IMPRESSION: Status post placement of right internal jugular central venous catheter, without gross pneumothorax. Persistent bilateral airspace disease, slightly increased on the left as compared to prior. D/ / Marcio Martinez MD / Marcio Martinez MD Interpreting Provider: Marcio Martinez MD Date of admission: 07/23/18 17:11 Primary care physician: Ute Conway CNP Consults: 07/23/18 17:08 Consult to Pulmonology [CONS] Routine Consulting Provider: [facility] Reason for Consult: respiratory failure s/p clonipin and flexeril overdose Call Completed: No 07/23/18 17:15 Consult to Nephrology [CONS] Routine Consulting Provider: [facility]/NANCY/DARIEN/NATASHA Reason for Consult: medication overdose Call Completed: Yes 07/24/18 04:31 Consult to Neurology [CONS] Routine Consulting Provider: [facility] Reason for Consult: Assess for hypoxic brain injury after overdose and cardiac arrest now developing seizure-like activity. Call Completed: Yes Discharging clinician: Lissette Maldonado (This is an elective transfer to [place]) Anticipated date of discharge: 07/24/18 - Patient Status Overall status at discharge: patient is not back to baseline - Diet and Activity Activity: other Diet: other - Hospital Course Hospital course: Mr. Beltran is a 48 year old male who presents to the ER on 07/23/2016 the EMS as unresponsive following and intentional overdose. On arrival to the ER, patient was found to be unresponsive with GCS of 3. No gag reflex present. He did be receive a total of 4 mg of Narcan without response. Patient was intubated, at time of intubation there was aspiration of a bright green emesis that was suctioned. It is noted that small pieces of pills were seen in the emesis. Patient had bradycardia and received 2 doses of atropine. There is minimal response. Pulse was lost and a total of 4 rounds of ACLS were performed with 1 amp of bicarbonate. Epinephrine drip was started however discontinued after his blood pressures began to be hypertensive. Poison control was contacted, 100 g of activated charcoal was given via OG. CT of the head and cervical spine were performed which showed no acute abdomen on a. CT of the chest, abdomen and pelvis showed bilateral lower lobe pneumonia, suspect secondary to aspiration. Per family, the patient had recently had a prescription filled for Klonopin, there are total of 90 pills as well as Flexeril. The patient had called his prior to taking the pills and told her of his intent. On arrival to the ICU, patient was stable, intubated with normotensive pressures. He was started on Unasyn for concern for aspiration pneumonia. Overnight, patient began to be hypotensive, and CVC was placed levophed was started. Patient also had intermittent episodes of body shaking, that would last a few seconds at a time and resolve. Given this the patient was given Keppra and started on Dilantin. Echocardiogram was obtained which showed ejection fraction of 60%, moderate LVH, normal ventricular diastolic function, no obvious significant valvular dysfunction, and no evidence of pulmonary hypertension. Neurology was also consulted given concern for a anoxic brain injury, per their recommendations EEG will be obtained. Based upon their assessment, they were concerned for hypoxic anoxic brain injury, with presence of myoclonic seizures. Patient was found to be slightly anemic with a hemoglobin of 8.6, lites lites are stable, calcium phosphorus and magnesium are slightly low, troponin is 0.121 admission, 0.07 on repeat, creatinine kinase of 21. UDS is positive for benzodiazepines. During the patient's admission, the patient's family was at bedside and requested further discussion with the rn lvn, Dr. Maldonado, please refer to his attending attestation and nursing notes for this information. It was determined by family, that they would like to electively transfer the patient to [place] for further management and care. I did discuss the patient with the transfer center, the accepting physician group is [facility], patient will be sent to the ICU. At time of transfer, patient is in critical condition he is intubated and unresponsive, however is breathing over the vent. He did not follow commands or respond to any stimuli. - Time Spent with Patient Total time spent providing and/or coordinating discharge services: Greater than 30 minutes Physical Examination Vital Signs: Vital Signs, Last 4 Hours Temp Pulse Resp BP Pulse Ox 07/24/18 08:09 102.0 F H 07/24/18 08:00 100 18 158/53 99 07/24/18 07:25 18 97 07/24/18 07:00 87 26 155/52 97 07/24/18 06:00 101.2 F H 96 20 151/41 98 General appearance: no acute distress, other (Intubated) Eyes: nonicteric, other (Patient's pupils are reactive) ENT: oropharynx dry Mallampati (class): 3 Neck: supple, no lymphadenopathy, no JVD Effort: normal Auscultation: bilateral: diminished breath sounds Cardiovascular: regular rate and rhythm Gastrointestinal: normoactive bowel sounds, soft, non-tender, non-distended Integumentary: normal Extremities: no cyanosis, no edema, no clubbing, pink and warm, pulses normal, no ischemia or petechiae Musculoskeletal: no deformities unable to assess due to mental status, other (Patient does not respond to commands, no reaction to sternal rub, no Babinski reflex)
[2018-07-24 11:21] VITALS: BP 171/65
--- NOTE | 2018-07-24 11:30 | Neurology - Consult Note ---
Date of Encounter: 07/24/18 Time of Encounter: 10:10 Assessment and Plan (1) Anoxic brain injury Current Visit: Yes Status: Acute Unfortunately, we are likely dealing with hypoxic anoxic brain injury. The presence of myoclonic seizures in this scenario is generally very ominous. Particularly considering that for different antiepileptic medications had to be implemented in order to stop the seizures. One would expect if we going to obtain a meaningful recovery at improvements in the neurologic examination should be made over the next 24-[address] hours. Did review the CT scan of the brain which was unremarkable. I did discuss my findings and my recommendations with the family at length. I do agree with transfer to a tertiary care facility in the event that he goes back into status epilepticus pentobarbital completely implemented and titrated to a burst suppression pattern on EEG. Continuous EEG monitoring is necessary before this option. I did explain to the family that unfortunately, based on my experience the likelihood of meaningful recovery is low. In the meantime I recommend maintaining the antiepileptic regimen as well as supportive measures History of Present Illness HPI: The chart was reviewed, the patient was seen and examined, case was discussed with ICU personnel as well as with the family. Mr. Beltran is a 48 year old male who unfortunately tried to commit suicide after leaving the note by taking 90 tablets of clonazepam along with some Flexeril. He apparently called his to inform her of what he had done. Upon arrival the patient was barely responsive and was intubated and bagged immediately. GCS score at that time was 5. Advanced lifesaving protocols were implemented after he went into PEA and he received 4 rounds of CPR. Patient may began to manifest myoclonic jerks. He was started on propofol, Versed drip, and then loaded on levetiracetam and finally phenytoin. The myoclonic jerks have now stopped however the patient remains unresponsive on the ventilator. Past Med Surg Social Fam HX - Past Medical History Medical history: hyperlipidemia, hypertension, thyroid disease, TIA, other Additional medical history: Cervical stenosis of spinal canal. cervical ra diculopathy. HLD. thyroid disease. depression Psychiatric history: anxiety, depression - Past Surgical History Surgical History: cholecystectomy, other Additional surgical history: femur fracture repair right. ACDF C6-7 05/10/16. RIGHT SHOULDER ROTATOR CUFF REPAIR - Social History Smoking Status: Never smoker Smokeless Tobacco Status: No Alcohol use: none Drug use: none - Family History Father Living Status: Hx Family Cardiac Disorders: Yes (CABG at age 70) Mother Living Status: Still Living Hx Family Cardiac Disorders: Yes (CABG at age 70) Hx Family Endocrine Disorder: Yes (DM) Medications and Allergies clonazePAM [Klonopin] 1 mg PO TID 03/11/15 [History] HydrOXYzine Pamoate [Vistaril] 25 mg PO TID PRN 05/10/16 [History] Buspirone HCl [Buspar] 1 tab PO TID 06/19/18 [History] DiphenhydraMINE [Benadryl] 2 cap PO Q8H 06/19/18 [History] Enalapril Maleate [Vasotec] 1 tab PO DAILY 06/19/18 [History] Gabapentin [Neurontin] 1 cap PO BID 06/19/18 [History] Levothyroxine Sodium [Levoxyl] 1 tab PO DAILY 06/19/18 [History] Paroxetine [Paxil] 1 tab PO DAILY 06/19/18 [History] Temazepam [Restoril] 1 cap PO HS PRN 06/19/18 [History] predniSONE [PredniSONE] 1 tab PO DAILY 06/19/18 [History] Allergy/AdvReac Type Severity Reaction Status Date / Time No Known Allergies Allergy Verified 03/10/15 17:19 ROS unobtainable: due to mental status All Systems: The remainder of the systems were reviewed and are negative Physical Examination - Vital Signs Vital Signs: Initial Vital Signs Temp Pulse Resp BP Pulse Ox 98.4 F 65 16 129/94 99 07/23/18 14:30 07/23/18 14:30 07/23/18 14:30 07/23/18 14:30 07/23/18 14:30 - Exam Exam: Neurologic exam is as follows: For cerebral functions, patient is unresponsive on ventilator. There is no spontaneous eye opening, patient does not follow commands, patient does not grimace or responsd at all to noxious stimuli. No posturing is present. Cranial nerve functions-pupils are symmetrically reactive to light, however doll's eyes and blink responses are absent symmetrically. No nystagmus is present. Patient is minimally assisting the ventilator. However, propofol and Versed are on board. Motor exam-tone is flaccid throughout. There are no involuntary movements identified at this time, including seizure activity. There is no posturing present. Sensory exam-there is no response to noxious stimuli. No withdrawal, no grimacing. No reflex responses. Deep tendon reflexes are absent throughout. No Babinski or clonus are present. Cerebellar exam-no ocular bobbing or myoclonus are present. Results - Laboratory Findings CBC and BMP: 07/24/18 04:37 07/24/18 04:37 Abnormal lab findings: Abnormal lab results RBC 2.77 M/mcL (4.19-5.50) L 07/24/18 04:37 Hgb 8.6 g/dL (12.9-16.9) L D 07/24/18 04:37 Hct 26.3 % (37.5-50.1) L 07/24/18 04:37 RDW 17.4 % (11.5-14.5) H 07/24/18 04:37 Plt Count 99 K/mcL (140-400) L 07/24/18 04:37 Nucleated RBCs/100 WBC 0.4 /100 WBC (0) H 07/24/18 04:37 Decreased (Normal) L 07/24/18 04:37 1+ (Not Present) A 07/24/18 04:37 PT 13.3 Seconds (9.4-12.1) H 07/24/18 04:46 ABG pH 7.28 pH Units (7.32-7.45) L 07/23/18 15:29 ABG pCO2 34 mmHg (35-45) L 07/24/18 04:44 ABG pO2 75 mmHg (85-104) L 07/24/18 04:44 ABG O2 Saturation 92 % (95-98) L 07/23/18 15:29 ABG Base Excess -3 mEq/L (-2 to 3) L 07/24/18 04:44 Sodium 135 mEq/L (136-145) L 07/23/18 14:29 Chloride 108 mEq/L (98-107) H 07/23/18 20:47 Carbon Dioxide 22 mEq/L (23-29) L 07/23/18 20:47 BUN 21 mg/dL (6-20) H 07/23/18 20:47 1.34 mg/dL (0.70-1.30) H 07/23/18 14:29 Est GFR (Non-Af Amer) 57 (> 60) L 07/23/18 14:29 Glucose 106 mg/dL (70-105) H 07/24/18 04:37 POC Glucose 260 mg/dL (70-99) H 07/23/18 18:52 Calcium 7.6 mg/dL (8.6-10.3) L 07/24/18 04:37 Phosphorus 2.1 mg/dL (2.7-4.5) L 07/24/18 04:37 Magnesium 1.5 mg/dL (1.6-2.6) L 07/24/18 04:37 1.2 mg/dL (0.3-1.0) H 07/23/18 14:29 AST 42 Units/L (13-39) H 07/23/18 20:47 ALT 60 Units/L (7-52) H 07/23/18 20:47 21 Units/L (30-223) L 07/23/18 14:29 0.07 ng/mL (< 0.04) H* 07/24/18 04:37 4.8 g/dL (6.4-8.9) L 07/23/18 20:47 3.2 g/dL (3.5-5.7) L 07/23/18 20:47 1.6 g/dL (2.4-3.5) L 07/23/18 20:47 Cloudy (Clear) A 07/23/18 15:05 30 mg/dL (Neg-Trace) H 07/23/18 15:05 Large (Negative) H 07/23/18 15:05 5-15 per hpf (0-3) H 07/23/18 15:05 Ur Squamous Epith Cells Many per lpf (None-Few) H 07/23/18 15:05 Salicylates < 2.5 mg/dL (15.0-30.0) L 07/23/18 14:29 Acetaminophen < 10 mcg/mL (10-20) L 07/23/18 14:29 U Benzodiazepines Scrn Positive ng/mL ([place]=113) H 07/23/18 15:05 Consult Discharge Plan - Plan Referrals: Ute Conway, WRAPPING MACHINE OPERATOR [Primary Care Provider] -
[2018-07-24] MEDS ORDERED: *HR* Rocuronium Bromide 100 MG/10 ML VIAL IVC ONE (11:55)
[2018-07-24] MEDS ORDERED: *HR* EPINEPHrine 1 MG/10 ML SYRINGE IVP ONE (11:55)
[2018-07-24] MEDS ORDERED: *HR* EPINEPHrine 30 MG/30 ML MDV IM ONE (11:55)
[2018-07-24] MEDS ORDERED: *HR* Atropine Sulfate 1 MG/10 ML SYRINGE IV ONE (11:55)
[2018-07-24] MEDS ORDERED: *HR* Etomidate 20 MG/10 ML AMPUL IVP ONE (11:55)
[2018-07-24] MEDS ORDERED: Piperacillin/Tazobactam 3.375 GM in 0.9 % Sodium Chloride Mini Bag 100 ML IVPB SCH (20:41)
--- NOTE | 2018-07-25 22:54 | Electrocardiograph Report ---
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
--- NOTE | 2018-07-26 09:03 | Electrocardiograph Report ---
[address] [place], [place] [address] Test Date: 2018-07-23 Pat Name: Ben Beltran Department: [id number] Room: 10 Gender: M Lead Assistant Manager: : 1970 Requested By: Renetta Lewis Order Number: [id number] Reading MD: Joshua Gutierrez Measurements Intervals [place] Rate: 169 P: 0 [place]: QRS: -47 QRSD: 108 T: 8 QT: 327 QTc: 549 Interpretive Statements Sinus tachycardia RSR' in V1 or V2, probably normal variant Baseline wander in lead(s) V1 Electronically Signed On 07-26-2018 9:02:16 EDT by Joshua Gutierrez
== END 2018-07-24 11:56 | disposition short-term general hospital (02) | DRG 917 ==
LOC: EMEROOARM 14:26 → ICNU 17:11
PROVIDERS: ADMIT Internal Medicine Nephrology; ATTEND Internal Medicine Nephrology